=== PATIENT | male | born 1940 | race Caucasian/White ===

== ENCOUNTER → 2017-04-25 14:48 | Outpatient (CLI) | payer MEDICARE ==
[2015-10-24 08:53] VITALS: BMI 24.3
[~2017-04-25 14:48] MED LIST: ADVAIR 100/501 DISK INH; AMBIEN10 MG PO
== END | disposition home or self-care (01) ==
LOC: D.CT 14:48
DX: J98.11 Atelectasis (principal); J44.1 Chronic obstructive pulmonary disease with (acute) exacerbation

== ENCOUNTER 2017-04-28 09:49 | Inpatient (IN) | payer MEDICARE ==
[~2017-04-28] VITALS: Ht 172.7 cm; Wt 72.5 kg
--- NOTE | ~2017-04-28 | EC ---
PATIENT:TONG CORREA DATE OF SERVICE: 04/29/17 SEX: M MEDICAL RECORD: [id number] DATE OF : 42 LOCATION:[facility] AGE OF PATIENT: 76 ADMISSION DATE: 04/29/17 REFERRING PHYSICIAN: INTERPRETING PHYSICIAN: ANUP ROMERO MD ECHOCARDIOGRAM REPORT ECHO CHARGES 4 ECHO COMPLETE CLINICAL DIAGNOSIS: TACHYCARDIA/CP ECHOCARDIOGRAPHIC MEASUREMENTS (adult normal given) AC root (d.<3.7cm) 3.3 cm LV Septum d (<1.2 cm> 1.1 cm Valve Excursion 1.8 cm LV Septum (systole) 1.9 cm Left Atria (s.<4.0cm> 3.4 cm LVPW d(<1.2cm) 1.3 cm RV (d.<2.3cm) 2.4 cm LVPW (sytole) 2.2 cm LV diastole(<5.6CM) 5.0 cm MV E-F(>70mm/sec) cm LV systole 3.2 cm LVOT Diameter 1.6 cm MV exc.(>10mm) cm Est.ejection fraction (50-75%) % Pericardial Effusion N DOPPLER: LVIT cm/sec A 100 cm/sec E 74.0 cm/sec LA cm/sec RVSP 35.0 mmHg LVOT 132 cm/sec AOP1/2T m/s Asc. Ao 153 cm/sec RVOT 87.0 cm/sec RA cm/sec PA 122 cm/sec AV Gradient Peak 9.4 mmHg AV Mean 6.1 mmHg AV Area 1.4 cm MV Gradient Peak 6.0 mmHg MV Mean 2.3 mmHg MV Area cm COMMENTS: Manager Bank: Howie VASQUEZOE Antique Repairer: Sima Romero TAPE# PACS DATE OF SERVICE: 05/12/2017 PROCEDURE: Transthoracic echocardiogram. FINDINGS: 1. Left ventricle shows evidence of left ventricular hypertrophy and hyperdynamic state. There are no obvious wall motion abnormalities. The patient's ejection fraction is 60% to 65%. 2. The mitral valve has trace mitral regurgitation. 3. Right ventricle is normal size, normal function. ECHOCARDIOGRAM REPORT [id number] TONG CORREA 4. The aortic valve shows sclerosis without any evidence of stenosis or significant regurgitation. 5. The right ventricular systolic pressure is normal. There is mild tricuspid regurgitation. 6. Pulmonic valve is normal. 7. There is no pericardial effusion. 8. The inferior vena cava was not well visualized. CONCLUSIONS: The patient has evidence of mild hypertensive heart disease. No wall motion abnormalities. Preserved LV systolic function to hyperdynamic LV systolic function, otherwise normal echocardiogram. TRANSINT:[id number] Voice Confirmation ID: [id number] DOCUMENT ID: [id number] ANUP ROMERO MD at 0947 CC: [id number] DICTATION DATE: 05/12/17 183 SLATE ROOFER: 05/12/17 2314 ADM IN [facility] [address] [id number]
--- NOTE | ~2017-04-28 | OP ---
PATIENT NAME: TONG CORREA MEDICAL RECORD: [id number] :42 LOCATION:D.MS [id number] ADMISSION DATE:04/29/17 SURGEON: NARESH MC MD DATE OF OPERATION: 05/09/2017 SURGEON: Naresh Mc MD TRAPEZE PERFORMER SURGEON: Vinh Elaine MD PROCEDURE PERFORMED: 1. Laparoscopic hand-assisted sigmoid colectomy with end colostomy. 2. Abdominal washout with evacuation of hematoma. ANESTHESIA: General. COMPLICATIONS: None. SPECIMENS: Sigmoid colon. Case was grossly contaminated. ESTIMATED BLOOD LOSS: 400 cc. OPERATIVE COURSE: After consent was obtained, the patient was taken to the operating room and placed in the supine position on the operating table. Next, general anesthesia was given via endotracheal intubation. Thereafter, a timeout was performed to confirm the correct patient and procedure. The abdomen was then prepped and draped in typical sterile fashion. Local anesthetic was injected just above the umbilicus. A stab incision was made with 11-blade scalpel. Using a 5-mm bladeless optical trocar, the abdomen was entered under direct laparoscopic vision. After the trocar was placed, adequate pneumoperitoneum was achieved. There was significant intra-abdominal adhesions to the anterior abdominal wall. The greater omentum that was coagulated, blood noted throughout the abdomen and pelvis. Two additional 5-mm trocars were placed in the right lateral quadrant. Blunt dissection was performed until the abdominal wall was cleared, evacuation of hemoperitoneum was attempted with the laparoscopic suction. Due to the quantity of hemoperitoneum, blood was not able to be suctioned from the abdomen. In the left lower quadrant, there was a portion of colon that was unable to be dissected from the anterior abdominal wall. At this time, the lower midline abdominal incision was placed. Skin was incised with a 15 blade scalpel. Dissection continued to the external oblique fascia using electrocautery. The midline fascia was opened using electrocautery. The peritoneum was opened with electrocautery and the remaining incision was opened with direct vision. The Tree retractor was placed, approximately 800 cc of coagulated blood was removed from the abdomen, the abdomen was copiously irrigated and suctioned. A Gelport was placed. Again, the abdomen was irrigated and suctioned again. The descending colon was mobilized, the white line of Toldt was taken with the Harmonic scalpel. At this time, the Gelport was removed. The sigmoid colon was meticulously dissected off the anterior abdominal wall. There were 2 areas of perforation noted within the sigmoid colon from the patient per admitting presentation of perforated diverticulitis with pneumoperitoneum, the hemorrhoidal vessels and inferior mesenteric artery and vessels were identified. They were taken with the linear CHASE stapler. Dissection continued to the level of the rectum. The colorectal junction, the GI stapler was again used to transect the colon at the colorectal junction. The mesentery was taken with the Harmonic scalpel. When healthy descending colon was identified, an additional firing of the CHASE stapler was OPERATIVE REPORT [id number] TONG CORREA used to transect the sigmoid colon. The sigmoid colon was passed off the field and sent for permanent pathology. The abdomen and pelvis was again copiously irrigated and suctioned. The small bowel was extracorporealized. There are multiple areas of significant small bowel adhesions secondary to coagulated blood. Small bowel was cleaned as was possible, small bowel was returned to the abdomen. The abdomen was again suctioned and irrigated. Dr. Elaine was consulted for definitive identification of the left ureter. The left ureter was identified in its course anterior to the external iliac artery to the bladder, the ureter was not injured. At this time, the abdomen was again irrigated and suctioned. A skin incision was made for a left lower quadrant colostomy with Harmonic scalpel. Subcutaneous tissues was dissected using the Harmonic scalpel. The cruciate incision was made into the fascia. The muscles were gently split. The peritoneum was incised with electrocautery, it was bluntly opened. The descending colon was delivered through the incision and liver to the anterior abdominal wall. Two JOJO drains were placed, 1 along the left paracolic gutter and one into the pelvis delivered through the 5-mm trocar sites, the fascia was then closed using #1 looped PDS. Skin was closed with sukhdev. A Yamile colostomy was then fashioned in the left lower quadrant. At the end of the case, all needle and instrument counts were correct. No complications occurred. The patient was extubated and transferred to the PACU in stable condition. TRANSINT:[id number] Voice Confirmation ID: [id number] DOCUMENT ID: [id number] NARESH MC MD at 0629 CC: [id number] DICTATION DATE: 05/09/17 1601 SHRIMP PACKER: 05/09/17 1724 ADM IN [facility] [address] [id number]
[2017-04-28 10:37] LABS: HEMATOCRIT 46.2 % (42.0-54.0); HEMOGLOBIN 15.9 g/dL (13.5-17.5); MCH 31.9 pg (26.0-34.0); MCHC 34.4 g/dL (31.0-37.0); MCV 92.6 fL (80.0-100.0); MEAN PLATELET VOLUME 9.1 fL (7.4-10.4); PLATELET COUNT 648 10x3/uL (130-400); RBC 4.99 10x6/uL (4.20-6.10); RDW 14.9 % (11.5-14.5); WBC 20.3 10x3/uL (4.8-10.8)
[2017-04-28 10:53] LABS: BASOPHILS 1 % (0-2); LYMPHOCYTES 11 % (15-50); MONOCYTES 3 % (2-11); NEUTROPHILS 81 % (40-80); PLATELET ESTIMATE INCREASED
[2017-04-28 10:58] LABS: ALBUMIN 3.9 g/dL (3.4-5.0); ANION GAP 12.5 mmol/L (8-16); BILIRUBIN - TOTAL 0.7 mg/dL (0.2-1.3); CALCIUM 9.1 mg/dL (8.5-10.1); CARBON DIOXIDE 29.5 mmol/L (21.0-32.0); CREATININE - SERUM 1.1 mg/dL (0.6-1.3); PROTEIN - SERUM 7.4 g/dL (6.4-8.2)
[2017-04-28 13:01] LABS: APPEARANCE CLEAR (CLEAR); BILIRUBIN NEGATIVE (NEGATIVE); COLOR YELLOW (YELLOW); GLUCOSE NEGATIVE (NEGATIVE); KETONE NEGATIVE (NEGATIVE); NITRITE NEGATIVE (NEGATIVE); PROTEIN NEGATIVE (NEGATIVE); SPECIFIC GRAVITY 1.015 (1.005-1.020); UROBILINOGEN NORMAL (NORMAL)
[2017-04-29 05:25] LABS: BASOPHILS 0.2 % (0-2); EOSINOPHILS 1.4 % (0-7); HEMOGLOBIN 13.3 g/dL (13.5-17.5); IMMATURE GRANULOCYTES 0.3 % (0-5); MCH 31.1 pg (26.0-34.0); MCHC 33.3 g/dL (31.0-37.0); MCV 93.5 fL (80.0-100.0); MEAN PLATELET VOLUME 9.2 fL (7.4-10.4); MONOCYTES 5.2 % (2-11); NEUTROPHILS 86.9 % (40-80); RBC 4.28 10x6/uL (4.20-6.10); WBC 18.1 10x3/uL (4.8-10.8)
[2017-04-29 05:32] LABS: PLATELET COUNT 496 10x3/uL (130-400)
[2017-04-29 06:05] LABS: ANION GAP 8.6 mmol/L (8-16); BILIRUBIN - TOTAL 0.7 mg/dL (0.2-1.3); CALCIUM 8.4 mg/dL (8.5-10.1); CARBON DIOXIDE 29.3 mmol/L (21.0-32.0); CREATININE - SERUM 1.1 mg/dL (0.6-1.3); POTASSIUM - SERUM 3.9 mmol/L (3.5-5.1); PROTEIN - SERUM 5.7 g/dL (6.4-8.2)
[2017-04-29 06:06] LABS: ALBUMIN 2.7 g/dL (3.4-5.0)
[2017-04-29 17:35] VITALS: BP 133/69; BMI 24.3
[2017-04-29 22:39] VITALS: BP 123/71
[2017-04-30 02:54] VITALS: BP 124/74
[2017-04-30 05:31] VITALS: BP 164/84
[2017-04-30 08:31] LABS: BASOPHILS 0.1 % (0-2); EOSINOPHILS 2.5 % (0-7); HEMATOCRIT 40.4 % (42.0-54.0); HEMOGLOBIN 13.7 g/dL (13.5-17.5); IMMATURE GRANULOCYTES 0.4 % (0-5); LYMPHOCYTES 5.5 % (15-50); MCH 31.4 pg (26.0-34.0); MCHC 33.9 g/dL (31.0-37.0); MCV 92.4 fL (80.0-100.0); MEAN PLATELET VOLUME 9.5 fL (7.4-10.4); MONOCYTES 4.8 % (2-11); NEUTROPHILS 86.7 % (40-80); PLATELET COUNT 494 10x3/uL (130-400); RBC 4.37 10x6/uL (4.20-6.10); RDW 14.6 % (11.5-14.5); WBC 15.9 10x3/uL (4.8-10.8)
[2017-04-30 09:40] VITALS: BP 123/65
[2017-04-30 11:48] VITALS: BP 127/73
[2017-04-30 12:52] VITALS: BMI 24.3
[2017-04-30 16:28] VITALS: BP 130/70
[2017-04-30 23:32] VITALS: BP 142/73
[2017-05-01 04:00] VITALS: BP 136/74
[2017-05-01 04:23] LABS: BASOPHILS 0.2 % (0-2); EOSINOPHILS 7.3 % (0-7); HEMATOCRIT 40.6 % (42.0-54.0); HEMOGLOBIN 13.8 g/dL (13.5-17.5); IMMATURE GRANULOCYTES 0.4 % (0-5); LYMPHOCYTES 7.9 % (15-50); MCH 31.4 pg (26.0-34.0); MCV 92.3 fL (80.0-100.0); MEAN PLATELET VOLUME 9.1 fL (7.4-10.4); MONOCYTES 6.5 % (2-11); NEUTROPHILS 77.7 % (40-80); PLATELET COUNT 492 10x3/uL (130-400); RDW 14.4 % (11.5-14.5)
[2017-05-01 04:26] LABS: WBC 11.2 10x3/uL (4.8-10.8)
[2017-05-01 04:32] LABS: CALC OSMOLALITY 280 mosm/kg (275-300); CALCIUM 8.3 mg/dL (8.5-10.1); CHLORIDE - SERUM 105 mmol/L (98-107); GLUCOSE 99 mg/dL (74-106); POTASSIUM - SERUM 3.5 mmol/L (3.5-5.1); SODIUM 141 mmol/L (136-145); UREA NITROGEN 12 mg/dL (7-18); eGFR NON AFRICAN AMERICAN 77 mL/min (90-120)
[2017-05-01 09:02] VITALS: BP 144/76
[2017-05-01 12:24] VITALS: BP 138/75
[2017-05-01 16:21] VITALS: BP 145/78
[2017-05-01 21:39] VITALS: BP 142/97
[2017-05-02] VITALS (7 sets, daily range): BP systolic 96–165; BP diastolic 58–79
[2017-05-02 05:46] LABS: BASOPHILS 0.2 % (0-2); EOSINOPHILS 6.5 % (0-7); HEMATOCRIT 35.7 % (42.0-54.0); HEMOGLOBIN 12.1 g/dL (13.5-17.5); IMMATURE GRANULOCYTES 0.4 % (0-5); LYMPHOCYTES 4.7 % (15-50); MCHC 33.9 g/dL (31.0-37.0); MCV 91.5 fL (80.0-100.0); MEAN PLATELET VOLUME 9.2 fL (7.4-10.4); MONOCYTES 8.9 % (2-11); NEUTROPHILS 79.3 % (40-80); PLATELET COUNT 469 10x3/uL (130-400); RDW 14.3 % (11.5-14.5); WBC 10.5 10x3/uL (4.8-10.8)
[2017-05-02 06:06] LABS: CALC OSMOLALITY 277 mosm/kg (275-300); CALCIUM 7.9 mg/dL (8.5-10.1); CARBON DIOXIDE 25.2 mmol/L (21.0-32.0); CHLORIDE - SERUM 105 mmol/L (98-107); CREATININE - SERUM 0.9 mg/dL (0.6-1.3); GLUCOSE 98 mg/dL (74-106); POTASSIUM - SERUM 3.5 mmol/L (3.5-5.1); SODIUM 139 mmol/L (136-145); UREA NITROGEN 12 mg/dL (7-18); eGFR NON AFRICAN AMERICAN 87 mL/min (90-120)
[2017-05-02 11:13] LABS: INR 1.17 (0.85-1.17); PROTIME 14.4 SECONDS (11.6-15.0)
[2017-05-02 11:14] LABS: APTT 46.9 SECONDS (22.8-39.4)
[2017-05-03 02:11] VITALS: BP 104/60
[2017-05-03 04:56] VITALS: BP 111/64
[2017-05-03 07:15] VITALS: BP 98/56
[2017-05-03 07:28] LABS: BASOPHILS 0.2 % (0-2); EOSINOPHILS 0.1 % (0-7); HEMATOCRIT 28.6 % (42.0-54.0); HEMOGLOBIN 9.7 g/dL (13.5-17.5); IMMATURE GRANULOCYTES 0.4 % (0-5); LYMPHOCYTES 3.4 % (15-50); MCHC 33.9 g/dL (31.0-37.0); MCV 91.4 fL (80.0-100.0); MEAN PLATELET VOLUME 9.1 fL (7.4-10.4); MONOCYTES 9.3 % (2-11); NEUTROPHILS 86.6 % (40-80); PLATELET COUNT 488 10x3/uL (130-400); RBC 3.13 10x6/uL (4.20-6.10); RDW 14.3 % (11.5-14.5)
[2017-05-03 07:32] LABS: WBC 14.4 10x3/uL (4.8-10.8)
[2017-05-03 07:39] LABS: ANION GAP 11.2 mmol/L (8-16); CALCIUM 7.8 mg/dL (8.5-10.1); CARBON DIOXIDE 25.9 mmol/L (21.0-32.0); CREATININE - SERUM 1.1 mg/dL (0.6-1.3); MAGNESIUM - SERUM 1.7 mg/dL (1.8-2.4)
[2017-05-03 07:45] LABS: POTASSIUM - SERUM 4.1 mmol/L (3.5-5.1)
[2017-05-03 11:03] VITALS: BP 109/56
[2017-05-03 15:11] VITALS: BP 107/56
[2017-05-03 22:20] VITALS: BP 107/63
[2017-05-04 01:15] VITALS: BP 96/60
[2017-05-04 04:55] LABS: BASOPHILS 0.3 % (0-2); HEMATOCRIT 25.4 % (42.0-54.0); HEMOGLOBIN 8.5 g/dL (13.5-17.5); IMMATURE GRANULOCYTES 0.6 % (0-5); LYMPHOCYTES 7.7 % (15-50); MCH 30.5 pg (26.0-34.0); MCHC 33.5 g/dL (31.0-37.0); MONOCYTES 8.1 % (2-11); NEUTROPHILS 81.3 % (40-80); PLATELET COUNT 541 10x3/uL (130-400); RBC 2.79 10x6/uL (4.20-6.10); RDW 14.4 % (11.5-14.5); WBC 14.7 10x3/uL (4.8-10.8)
[2017-05-04 05:05] VITALS: BP 122/79
[2017-05-04 05:06] LABS: CALC OSMOLALITY 282 mosm/kg (275-300); CALCIUM 8.1 mg/dL (8.5-10.1); CARBON DIOXIDE 29.1 mmol/L (21.0-32.0); CHLORIDE - SERUM 103 mmol/L (98-107); GLUCOSE 107 mg/dL (74-106); POTASSIUM - SERUM 3.9 mmol/L (3.5-5.1); SODIUM 139 mmol/L (136-145); eGFR NON AFRICAN AMERICAN 77 mL/min (90-120)
[2017-05-04 05:08] LABS: UREA NITROGEN 27 mg/dL (7-18)
[2017-05-04 07:57] VITALS: BP 134/63
[2017-05-04 12:34] VITALS: BP 113/65
[2017-05-04 15:45] VITALS: BP 95/57
[2017-05-04 22:26] VITALS: BP 98/60
[2017-05-05 01:39] VITALS: BP 120/67
[2017-05-05 04:18] LABS: BASOPHILS 0.2 % (0-2); HEMATOCRIT 24.3 % (42.0-54.0); IMMATURE GRANULOCYTES 0.5 % (0-5); MCH 30.5 pg (26.0-34.0); MCHC 32.9 g/dL (31.0-37.0); MCV 92.7 fL (80.0-100.0); MEAN PLATELET VOLUME 8.7 fL (7.4-10.4); MONOCYTES 8.7 % (2-11); NEUTROPHILS 75.6 % (40-80); PLATELET COUNT 558 10x3/uL (130-400); RBC 2.62 10x6/uL (4.20-6.10); RDW 14.4 % (11.5-14.5); WBC 13.2 10x3/uL (4.8-10.8)
[2017-05-05 04:35] LABS: CALC OSMOLALITY 280 mosm/kg (275-300); CALCIUM 7.8 mg/dL (8.5-10.1); CARBON DIOXIDE 30.9 mmol/L (21.0-32.0); CHLORIDE - SERUM 103 mmol/L (98-107); CREATININE - SERUM 0.9 mg/dL (0.6-1.3); GLUCOSE 102 mg/dL (74-106); POTASSIUM - SERUM 3.9 mmol/L (3.5-5.1); SODIUM 140 mmol/L (136-145); eGFR NON AFRICAN AMERICAN 87 mL/min (90-120)
[2017-05-05 04:36] LABS: UREA NITROGEN 19 mg/dL (7-18)
[2017-05-05 05:15] VITALS: BP 105/67
[2017-05-05 08:45] VITALS: BP 133/65
[2017-05-05 12:31] VITALS: BP 127/73
[2017-05-05 16:56] VITALS: BP 105/66
[2017-05-05 22:21] VITALS: BP 125/67
[2017-05-06 00:56] VITALS: BP 127/74
[2017-05-06 05:20] VITALS: BP 109/69
[2017-05-06 09:02] VITALS: BP 141/73
[2017-05-06 09:46] LABS: BASOPHILS 0.3 % (0-2); EOSINOPHILS 5.7 % (0-7); HEMATOCRIT 25.7 % (42.0-54.0); HEMOGLOBIN 8.3 g/dL (13.5-17.5); IMMATURE GRANULOCYTES 1.2 % (0-5); MCHC 32.3 g/dL (31.0-37.0); MCV 92.8 fL (80.0-100.0); MEAN PLATELET VOLUME 9.2 fL (7.4-10.4); MONOCYTES 9.8 % (2-11); PLATELET COUNT 711 10x3/uL (130-400); RBC 2.77 10x6/uL (4.20-6.10); RDW 14.2 % (11.5-14.5); WBC 12.9 10x3/uL (4.8-10.8)
[2017-05-06 09:59] LABS: CALC OSMOLALITY 279 mosm/kg (275-300); CALCIUM 7.8 mg/dL (8.5-10.1); CARBON DIOXIDE 33.2 mmol/L (21.0-32.0); CHLORIDE - SERUM 102 mmol/L (98-107); CREATININE - SERUM 0.8 mg/dL (0.6-1.3); GLUCOSE 116 mg/dL (74-106); POTASSIUM - SERUM 3.4 mmol/L (3.5-5.1); SODIUM 139 mmol/L (136-145); UREA NITROGEN 15 mg/dL (7-18); eGFR NON AFRICAN AMERICAN > 90 mL/min (90-120)
[2017-05-06 12:45] VITALS: BP 121/64
[2017-05-06 17:19] VITALS: BP 158/71
[2017-05-06 22:12] VITALS: BP 120/69
[2017-05-07 01:36] VITALS: BP 124/68
[2017-05-07 04:46] VITALS: BP 132/75
[2017-05-07 06:22] LABS: BASOPHILS 0.2 % (0-2); EOSINOPHILS 7.3 % (0-7); HEMATOCRIT 23.9 % (42.0-54.0); HEMOGLOBIN 7.8 g/dL (13.5-17.5); IMMATURE GRANULOCYTES 2.1 % (0-5); LYMPHOCYTES 9.5 % (15-50); MCH 30.1 pg (26.0-34.0); MCHC 32.6 g/dL (31.0-37.0); MCV 92.3 fL (80.0-100.0); MEAN PLATELET VOLUME 9.1 fL (7.4-10.4); MONOCYTES 8.3 % (2-11); NEUTROPHILS 72.6 % (40-80); PLATELET COUNT 715 10x3/uL (130-400); RBC 2.59 10x6/uL (4.20-6.10); RDW 14.3 % (11.5-14.5)
[2017-05-07 06:43] LABS: CALC OSMOLALITY 277 mosm/kg (275-300); CALCIUM 7.8 mg/dL (8.5-10.1); CARBON DIOXIDE 31.1 mmol/L (21.0-32.0); CHLORIDE - SERUM 101 mmol/L (98-107); CREATININE - SERUM 0.7 mg/dL (0.6-1.3); GLUCOSE 110 mg/dL (74-106); POTASSIUM - SERUM 3.6 mmol/L (3.5-5.1); SODIUM 138 mmol/L (136-145); UREA NITROGEN 16 mg/dL (7-18); eGFR NON AFRICAN AMERICAN > 90 mL/min (90-120)
[2017-05-07 08:00] VITALS: BP 145/70
[2017-05-07 17:02] VITALS: BP 142/65
[2017-05-07 23:49] VITALS: BP 115/62
[2017-05-08 05:25] VITALS: BP 154/71
[2017-05-08 07:52] VITALS: BP 115/63
[2017-05-08 09:16] LABS: HEMATOCRIT 24.7 % (42.0-54.0); MCHC 32.4 g/dL (31.0-37.0); MCV 92.5 fL (80.0-100.0); MEAN PLATELET VOLUME 8.9 fL (7.4-10.4); PLATELET COUNT 796 10x3/uL (130-400); RBC 2.67 10x6/uL (4.20-6.10); RDW 14.3 % (11.5-14.5); WBC 22.9 10x3/uL (4.8-10.8)
[2017-05-08 09:24] LABS: CALC OSMOLALITY 273 mosm/kg (275-300); CALCIUM 7.9 mg/dL (8.5-10.1); CHLORIDE - SERUM 99 mmol/L (98-107); CREATININE - SERUM 0.8 mg/dL (0.6-1.3); GENTAMICIN - TROUGH 0.9 ug/mL (0.5-2.0); GLUCOSE 143 mg/dL (74-106); SODIUM 135 mmol/L (136-145); UREA NITROGEN 18 mg/dL (7-18); eGFR NON AFRICAN AMERICAN > 90 mL/min (90-120)
[2017-05-08 10:09] LABS: EOSINOPHILS 1 % (0-7); LYMPHOCYTES 4 % (15-50); MONOCYTES 8 % (2-11); NEUTROPHILS 80 % (40-80); PLATELET ESTIMATE NORMAL
[2017-05-08 12:11] VITALS: BP 127/65
[2017-05-08 23:10] VITALS: BP 1047/64
[2017-05-09 02:43] VITALS: BP 169/78
[2017-05-09 05:08] LABS: CALC OSMOLALITY 273 mosm/kg (275-300); CALCIUM 7.8 mg/dL (8.5-10.1); CARBON DIOXIDE 30.7 mmol/L (21.0-32.0); CHLORIDE - SERUM 99 mmol/L (98-107); CREATININE - SERUM 0.8 mg/dL (0.6-1.3); GLUCOSE 126 mg/dL (74-106); POTASSIUM - SERUM 4.2 mmol/L (3.5-5.1); SODIUM 134 mmol/L (136-145); eGFR NON AFRICAN AMERICAN > 90 mL/min (90-120)
[2017-05-09 05:09] LABS: BASOPHILS 0.1 % (0-2); EOSINOPHILS 0.7 % (0-7); HEMATOCRIT 20.8 % (42.0-54.0); HEMOGLOBIN 6.9 g/dL (13.5-17.5); IMMATURE GRANULOCYTES 1.4 % (0-5); MCH 30.5 pg (26.0-34.0); MCHC 33.2 g/dL (31.0-37.0); MEAN PLATELET VOLUME 9.1 fL (7.4-10.4); MONOCYTES 4.2 % (2-11); NEUTROPHILS 90.6 % (40-80); PLATELET COUNT 726 10x3/uL (130-400); RBC 2.26 10x6/uL (4.20-6.10); RDW 14.7 % (11.5-14.5); WBC 21.6 10x3/uL (4.8-10.8)
[2017-05-09 05:13] VITALS: BP 136/72
[2017-05-09 05:15] LABS: UREA NITROGEN 24 mg/dL (7-18)
[2017-05-09 07:59] VITALS: BP 111/59
[2017-05-09 17:40] VITALS: BP 117/64
[2017-05-09 22:06] VITALS: BP 111/57
[2017-05-10 04:36] VITALS: BP 105/61
[2017-05-10 05:55] LABS: BASOPHILS 0.1 % (0-2); EOSINOPHILS 0.3 % (0-7); IMMATURE GRANULOCYTES 1.3 % (0-5); LYMPHOCYTES 3.6 % (15-50); MCH 30.4 pg (26.0-34.0); MCHC 34.6 g/dL (31.0-37.0); MEAN PLATELET VOLUME 9.4 fL (7.4-10.4); MONOCYTES 6.1 % (2-11); NEUTROPHILS 88.6 % (40-80); PLATELET COUNT 637 10x3/uL (130-400); RDW 16.4 % (11.5-14.5)
[2017-05-10 06:01] LABS: HEMATOCRIT 35.5 % (42.0-54.0); HEMOGLOBIN 12.3 g/dL (13.5-17.5); MCV 87.7 fL (80.0-100.0); RBC 4.05 10x6/uL (4.20-6.10); WBC 15.1 10x3/uL (4.8-10.8)
[2017-05-10 06:12] LABS: ANION GAP 11.9 mmol/L (8-16); CALCIUM 7.4 mg/dL (8.5-10.1); CARBON DIOXIDE 27.4 mmol/L (21.0-32.0); CREATININE - SERUM 1.1 mg/dL (0.6-1.3); POTASSIUM - SERUM 5.3 mmol/L (3.5-5.1)
[2017-05-10 07:03] VITALS: BP 117/68
[2017-05-10 11:10] VITALS: BP 115/77
[2017-05-10 15:07] VITALS: BP 137/79
[2017-05-10 20:30] VITALS: BP 134/67
[2017-05-11] VITALS (10 sets, daily range): BP systolic 112–181; BP diastolic 62–108
[2017-05-11 05:37] LABS: BASOPHILS 0.1 % (0-2); EOSINOPHILS 0 % (0-7); HEMATOCRIT 34.8 % (42.0-54.0); HEMOGLOBIN 11.8 g/dL (13.5-17.5); IMMATURE GRANULOCYTES 0.9 % (0-5); LYMPHOCYTES 2.4 % (15-50); MCH 29.8 pg (26.0-34.0); MCHC 33.9 g/dL (31.0-37.0); MCV 87.9 fL (80.0-100.0); MEAN PLATELET VOLUME 9.3 fL (7.4-10.4); MONOCYTES 5.4 % (2-11); NEUTROPHILS 91.2 % (40-80); PLATELET COUNT 702 10x3/uL (130-400); RBC 3.96 10x6/uL (4.20-6.10); RDW 16.7 % (11.5-14.5); WBC 24.3 10x3/uL (4.8-10.8)
[2017-05-11 05:53] LABS: CALC OSMOLALITY 281 mosm/kg (275-300); CALCIUM 8.1 mg/dL (8.5-10.1); CARBON DIOXIDE 29.4 mmol/L (21.0-32.0); CHLORIDE - SERUM 97 mmol/L (98-107); GLUCOSE 124 mg/dL (74-106); MAGNESIUM - SERUM 2.2 mg/dL (1.8-2.4); POTASSIUM - SERUM 4.6 mmol/L (3.5-5.1); SODIUM 135 mmol/L (136-145); eGFR NON AFRICAN AMERICAN 77 mL/min (90-120)
[2017-05-11 05:54] LABS: UREA NITROGEN 43 mg/dL (7-18)
[2017-05-12] VITALS (24 sets, daily range): BP systolic 94–164; BP diastolic 62–98; Ht 172.7 cm; Wt 72.5 kg
[2017-05-12 00:27] LABS: ALBUMIN 1.7 g/dL (3.4-5.0); ALKALINE PHOSPHATASE 92 U/L (46-116); ALT (SGPT) 50 U/L (10-68); CALC OSMOLALITY 280 mosm/kg (275-300); CALCIUM 8.5 mg/dL (8.5-10.1); CARBON DIOXIDE 33.7 mmol/L (21.0-32.0); CHLORIDE - SERUM 93 mmol/L (98-107); CREATININE - SERUM 1.1 mg/dL (0.6-1.3); GLUCOSE 127 mg/dL (74-106); PROTEIN - SERUM 6.1 g/dL (6.4-8.2); SODIUM 133 mmol/L (136-145); UREA NITROGEN 49 mg/dL (7-18); eGFR NON AFRICAN AMERICAN 69 mL/min (90-120)
[2017-05-12 00:29] LABS: POTASSIUM - SERUM 3.9 mmol/L (3.5-5.1)
[2017-05-12 00:39] LABS: CKMB 1.1 U/L (0.0-3.6); CREATINE KINASE 115 UL (21-232); TROPONIN-I < 0.017 ng/mL (0.000-0.060)
[2017-05-12 03:58] LABS: ANION GAP 9.7 mmol/L (8-16); CALCIUM 8.6 mg/dL (8.5-10.1); CARBON DIOXIDE 34.7 mmol/L (21.0-32.0); CREATININE - SERUM 1.1 mg/dL (0.6-1.3); MAGNESIUM - SERUM 2.1 mg/dL (1.8-2.4); POTASSIUM - SERUM 3.4 mmol/L (3.5-5.1)
[2017-05-12 03:59] LABS: BASOPHILS 0.3 % (0-2); EOSINOPHILS 0 % (0-7); HEMATOCRIT 32.9 % (42.0-54.0); HEMOGLOBIN 11.3 g/dL (13.5-17.5); LYMPHOCYTES 2.6 % (15-50); MCH 30.3 pg (26.0-34.0); MCHC 34.3 g/dL (31.0-37.0); MCV 88.2 fL (80.0-100.0); MEAN PLATELET VOLUME 9.4 fL (7.4-10.4); MONOCYTES 4.2 % (2-11); NEUTROPHILS 91.9 % (40-80); PLATELET COUNT 890 10x3/uL (130-400); RBC 3.73 10x6/uL (4.20-6.10); RDW 16.5 % (11.5-14.5); WBC 28.3 10x3/uL (4.8-10.8)
[2017-05-12 08:46] LABS: BILIRUBIN - DIRECT 4.83 mg/dL (0.00-0.30); BILIRUBIN - INDIRECT 1.32 mg/dL (0.00-1.00); BILIRUBIN - TOTAL 6.15 mg/dL (0.2-1.3)
[2017-05-12 12:43] LABS: CKMB 1.6 U/L (0.0-3.6); CREATINE KINASE 124 UL (21-232); TROPONIN-I < 0.017 ng/mL (0.000-0.060)
[2017-05-12 12:55] LABS: APPEARANCE HAZY (CLEAR); BILIRUBIN 2+ (NEGATIVE); COLOR AMBER (YELLOW); GLUCOSE NEGATIVE (NEGATIVE); KETONE NEGATIVE (NEGATIVE); NITRITE NEGATIVE (NEGATIVE); PROTEIN 1+ mg/dL (NEGATIVE); SPECIFIC GRAVITY 1.015 (1.005-1.020); UROBILINOGEN NORMAL (NORMAL)
[2017-05-12 13:02] LABS: AMORPHOUS SEDIMENT >1+ /lpf (NONE SEEN); BACTERIA MODERATE /hpf (NONE SEEN); EPITHELIAL CELLS 0-5 /hpf (0-5); HYALINE CAST 0-5 /lpf (NONE SEEN); MUCUS >1+ /lpf (NONE SEEN); RED CELLS - URINE 0-5 /hpf (0-5); WHITE CELLS - URINE 0-5 /hpf (0-5)
[2017-05-12 17:36] LABS: CKMB 2.8 U/L (0.0-3.6); CREATINE KINASE 142 UL (21-232)
[2017-05-12 17:50] LABS: TROPONIN-I 0.016 ng/mL (0.000-0.060)
[2017-05-13] VITALS (25 sets, daily range): BP systolic 112–150; BP diastolic 62–98
[2017-05-13 00:16] LABS: CKMB 2.5 U/L (0.0-3.6); CREATINE KINASE 128 UL (21-232); TROPONIN-I < 0.017 ng/mL (0.000-0.060)
[2017-05-13 04:59] LABS: BASOPHILS 0.3 % (0-2); EOSINOPHILS 2.3 % (0-7); HEMATOCRIT 28.1 % (42.0-54.0); HEMOGLOBIN 9.3 g/dL (13.5-17.5); IMMATURE GRANULOCYTES 2.2 % (0-5); LYMPHOCYTES 3.8 % (15-50); MCH 29.4 pg (26.0-34.0); MCHC 33.1 g/dL (31.0-37.0); MCV 88.9 fL (80.0-100.0); MEAN PLATELET VOLUME 9.3 fL (7.4-10.4); MONOCYTES 5.5 % (2-11); NEUTROPHILS 85.9 % (40-80); PLATELET COUNT 771 10x3/uL (130-400); RBC 3.16 10x6/uL (4.20-6.10); RDW 16.7 % (11.5-14.5)
[2017-05-13 05:06] LABS: WBC 17.8 10x3/uL (4.8-10.8)
[2017-05-13 05:27] LABS: ALBUMIN 1.4 g/dL (3.4-5.0); ALKALINE PHOSPHATASE 76 U/L (46-116); BILIRUBIN - DIRECT 2.81 mg/dL (0.00-0.30); BILIRUBIN - INDIRECT 1.14 mg/dL (0.00-1.00); BILIRUBIN - TOTAL 3.95 mg/dL (0.2-1.3); CALC OSMOLALITY 284 mosm/kg (275-300); CALCIUM 8.1 mg/dL (8.5-10.1); CARBON DIOXIDE 29.5 mmol/L (21.0-32.0); CHLORIDE - SERUM 102 mmol/L (98-107); GLUCOSE 91 mg/dL (74-106); MAGNESIUM - SERUM 2.1 mg/dL (1.8-2.4); POTASSIUM - SERUM 3.5 mmol/L (3.5-5.1); SODIUM 137 mmol/L (136-145); UREA NITROGEN 44 mg/dL (7-18); eGFR NON AFRICAN AMERICAN 77 mL/min (90-120)
[2017-05-13 05:31] LABS: ALT (SGPT) 64 U/L (10-68)
[2017-05-14] VITALS (22 sets, daily range): BP systolic 97–147; BP diastolic 60–92
[2017-05-14 05:04] LABS: BASOPHILS 0.8 % (0-2); EOSINOPHILS 2.5 % (0-7); HEMATOCRIT 31.3 % (42.0-54.0); HEMOGLOBIN 10.2 g/dL (13.5-17.5); IMMATURE GRANULOCYTES 7.5 % (0-5); LYMPHOCYTES 4.6 % (15-50); MCH 29.1 pg (26.0-34.0); MCHC 32.6 g/dL (31.0-37.0); MCV 89.2 fL (80.0-100.0); MEAN PLATELET VOLUME 9.5 fL (7.4-10.4); MONOCYTES 7.7 % (2-11); NEUTROPHILS 76.9 % (40-80); PLATELET COUNT 736 10x3/uL (130-400); RBC 3.51 10x6/uL (4.20-6.10); RDW 17.1 % (11.5-14.5); WBC 15.8 10x3/uL (4.8-10.8)
[2017-05-14 05:09] LABS: ALBUMIN 1.4 g/dL (3.4-5.0); ALKALINE PHOSPHATASE 108 U/L (46-116); ALT (SGPT) 138 U/L (10-68); BILIRUBIN - DIRECT 1.45 mg/dL (0.00-0.30); BILIRUBIN - TOTAL 2.45 mg/dL (0.2-1.3); CALC OSMOLALITY 279 mosm/kg (275-300); CALCIUM 7.9 mg/dL (8.5-10.1); CARBON DIOXIDE 29.3 mmol/L (21.0-32.0); CHLORIDE - SERUM 102 mmol/L (98-107); CREATININE - SERUM 0.9 mg/dL (0.6-1.3); GLUCOSE 103 mg/dL (74-106); MAGNESIUM - SERUM 2.3 mg/dL (1.8-2.4); POTASSIUM - SERUM 3.4 mmol/L (3.5-5.1); PROTEIN - SERUM 4.8 g/dL (6.4-8.2); SODIUM 137 mmol/L (136-145); UREA NITROGEN 28 mg/dL (7-18); eGFR NON AFRICAN AMERICAN 87 mL/min (90-120)
[2017-05-15 04:00] VITALS: BP 121/71
[2017-05-15 04:46] LABS: BASOPHILS 1.4 % (0-2); EOSINOPHILS 2.4 % (0-7); HEMATOCRIT 28.5 % (42.0-54.0); IMMATURE GRANULOCYTES 11.1 % (0-5); LYMPHOCYTES 4.8 % (15-50); MCH 29.1 pg (26.0-34.0); MCHC 31.6 g/dL (31.0-37.0); MEAN PLATELET VOLUME 9.9 fL (7.4-10.4); MONOCYTES 7.4 % (2-11); NEUTROPHILS 72.9 % (40-80); PLATELET COUNT 798 10x3/uL (130-400); RBC 3.09 10x6/uL (4.20-6.10); RDW 17.7 % (11.5-14.5); WBC 17.9 10x3/uL (4.8-10.8)
[2017-05-15 05:07] LABS: MCV 92.2 fL (80.0-100.0)
[2017-05-15 05:08] LABS: CALC OSMOLALITY 267 mosm/kg (275-300); CALCIUM 7.5 mg/dL (8.5-10.1); CARBON DIOXIDE 28.4 mmol/L (21.0-32.0); CHLORIDE - SERUM 97 mmol/L (98-107); CREATININE - SERUM 0.9 mg/dL (0.6-1.3); GLUCOSE 147 mg/dL (74-106); MAGNESIUM - SERUM 2.5 mg/dL (1.8-2.4); SODIUM 130 mmol/L (136-145); UREA NITROGEN 24 mg/dL (7-18); eGFR NON AFRICAN AMERICAN 87 mL/min (90-120)
[2017-05-15 05:13] LABS: POTASSIUM - SERUM 4.8 mmol/L (3.5-5.1)
[2017-05-15 08:12] VITALS: BP 122/67
[2017-05-15 09:06] LABS: BILIRUBIN - DIRECT 0.79 mg/dL (0.00-0.30); BILIRUBIN - TOTAL 1.55 mg/dL (0.2-1.3)
[2017-05-15 12:24] VITALS: BP 107/59
[2017-05-15 15:57] VITALS: BP 117/67
[2017-05-15 20:00] VITALS: BP 111/64
[2017-05-15 21:39] VITALS: BP 130/71
[2017-05-16] VITALS: BP 114/65
[2017-05-16 04:00] VITALS: BP 93/45
[2017-05-16 04:51] LABS: BASOPHILS 1.3 % (0-2); EOSINOPHILS 1.7 % (0-7); HEMATOCRIT 28.3 % (42.0-54.0); HEMOGLOBIN 9.1 g/dL (13.5-17.5); IMMATURE GRANULOCYTES 9.7 % (0-5); LYMPHOCYTES 5.2 % (15-50); MCH 28.9 pg (26.0-34.0); MCHC 32.2 g/dL (31.0-37.0); MEAN PLATELET VOLUME 9.6 fL (7.4-10.4); MONOCYTES 9.2 % (2-11); NEUTROPHILS 72.9 % (40-80); PLATELET COUNT 792 10x3/uL (130-400); RBC 3.15 10x6/uL (4.20-6.10); RDW 17.6 % (11.5-14.5); WBC 18.7 10x3/uL (4.8-10.8)
[2017-05-16 04:53] LABS: ALBUMIN 1.5 g/dL (3.4-5.0); ALKALINE PHOSPHATASE 94 U/L (46-116); CALCIUM 7.2 mg/dL (8.5-10.1); CARBON DIOXIDE 29.9 mmol/L (21.0-32.0); CHLORIDE - SERUM 100 mmol/L (98-107); MAGNESIUM - SERUM 2.3 mg/dL (1.8-2.4); SODIUM 134 mmol/L (136-145); UREA NITROGEN 24 mg/dL (7-18); eGFR NON AFRICAN AMERICAN 77 mL/min (90-120)
[2017-05-16 04:57] LABS: MCV 89.8 fL (80.0-100.0)
[2017-05-16 05:00] LABS: ALT (SGPT) 82 U/L (10-68); CALC OSMOLALITY 271 mosm/kg (275-300); GLUCOSE 94 mg/dL (74-106); POTASSIUM - SERUM 3.7 mmol/L (3.5-5.1)
[2017-05-16 09:33] VITALS: BP 114/68
[2017-05-16 13:28] VITALS: BP 106/67
[2017-05-16 18:40] VITALS: BP 121/68
[2017-05-16 20:00] VITALS: BP 110/63
[2017-05-17] VITALS: BP 111/65
[2017-05-17 04:00] VITALS: BP 112/62
[2017-05-17 06:30] LABS: BASOPHILS 0.5 % (0-2); EOSINOPHILS 2.6 % (0-7); HEMATOCRIT 27.4 % (42.0-54.0); HEMOGLOBIN 8.8 g/dL (13.5-17.5); LYMPHOCYTES 4.5 % (15-50); MCH 28.9 pg (26.0-34.0); MCHC 32.1 g/dL (31.0-37.0); MCV 90.1 fL (80.0-100.0); MEAN PLATELET VOLUME 9.6 fL (7.4-10.4); NEUTROPHILS 77.4 % (40-80); PLATELET COUNT 739 10x3/uL (130-400); RBC 3.04 10x6/uL (4.20-6.10); RDW 17.4 % (11.5-14.5); WBC 18.8 10x3/uL (4.8-10.8)
[2017-05-17 06:45] LABS: CALC OSMOLALITY 265 mosm/kg (275-300); CALCIUM 7.1 mg/dL (8.5-10.1); CARBON DIOXIDE 28.2 mmol/L (21.0-32.0); CHLORIDE - SERUM 99 mmol/L (98-107); GLUCOSE 80 mg/dL (74-106); MAGNESIUM - SERUM 2.3 mg/dL (1.8-2.4); POTASSIUM - SERUM 3.6 mmol/L (3.5-5.1); SODIUM 133 mmol/L (136-145); eGFR NON AFRICAN AMERICAN 77 mL/min (90-120)
[2017-05-17 06:46] LABS: UREA NITROGEN 16 mg/dL (7-18)
[2017-05-17 07:41] VITALS: BP 130/65
[2017-05-17 12:27] VITALS: BP 117/68
[2017-05-17 15:54] VITALS: BP 119/50
[2017-05-17 20:00] VITALS: BP 117/70
[2017-05-18] VITALS: BP 117/72
[2017-05-18 04:00] VITALS: BP 102/60
[2017-05-18 07:01] LABS: HEMATOCRIT 28.1 % (42.0-54.0); HEMOGLOBIN 9.1 g/dL (13.5-17.5); MCH 29.2 pg (26.0-34.0); MCHC 32.4 g/dL (31.0-37.0); MCV 90.1 fL (80.0-100.0); MEAN PLATELET VOLUME 9.6 fL (7.4-10.4); PLATELET COUNT 738 10x3/uL (130-400); RBC 3.12 10x6/uL (4.20-6.10); RDW 17.2 % (11.5-14.5); WBC 24.5 10x3/uL (4.8-10.8)
[2017-05-18 07:12] LABS: ANION GAP 9.2 mmol/L (8-16); CARBON DIOXIDE 28.2 mmol/L (21.0-32.0); CREATININE - SERUM 1.1 mg/dL (0.6-1.3); POTASSIUM - SERUM 3.4 mmol/L (3.5-5.1)
[2017-05-18 07:17] LABS: EOSINOPHILS 3 % (0-7); LYMPHOCYTES 10 % (15-50); MONOCYTES 2 % (2-11); NEUTROPHILS 79 % (40-80); PLATELET ESTIMATE INCREASED; PLATELET MORPHOLOGY GIANT PLTS PRESENT
[2017-05-18 07:53] VITALS: BP 121/70
[2017-05-18 08:48] LABS: INR 1.2 (0.85-1.17); PROTIME 14.8 SECONDS (11.6-15.0)
[2017-05-18 12:44] VITALS: BP 120/75
[2017-05-18 15:56] VITALS: BP 142/75
[2017-05-18 20:00] VITALS: BP 111/64
[2017-05-19 04:00] VITALS: BP 130/72
[2017-05-19 05:07] LABS: IMMUNOGLOBULIN E 21 IU/mL (0-100)
[2017-05-19 08:10] LABS: BASOPHILS 0.5 % (0-2); EOSINOPHILS 1.3 % (0-7); HEMATOCRIT 28.5 % (42.0-54.0); HEMOGLOBIN 9.4 g/dL (13.5-17.5); LYMPHOCYTES 4.1 % (15-50); MCH 29.5 pg (26.0-34.0); MCV 89.3 fL (80.0-100.0); MEAN PLATELET VOLUME 9.5 fL (7.4-10.4); MONOCYTES 6.6 % (2-11); NEUTROPHILS 83.5 % (40-80); PLATELET COUNT 727 10x3/uL (130-400); RBC 3.19 10x6/uL (4.20-6.10); WBC 22.3 10x3/uL (4.8-10.8)
[2017-05-19 09:06] VITALS: BP 129/78
[2017-05-19 13:22] VITALS: BP 118/68
[2017-05-19 17:29] VITALS: BP 105/63
[2017-05-19 20:00] VITALS: BP 120/75
[2017-05-20] VITALS: BP 136/60
[2017-05-20 04:00] VITALS: BP 123/61
[2017-05-20 06:01] LABS: CALC OSMOLALITY 275 mosm/kg (275-300); CALCIUM 7.8 mg/dL (8.5-10.1); CHLORIDE - SERUM 104 mmol/L (98-107); CREATININE - SERUM 0.9 mg/dL (0.6-1.3); GLUCOSE 99 mg/dL (74-106); POTASSIUM - SERUM 3.4 mmol/L (3.5-5.1); SODIUM 138 mmol/L (136-145); UREA NITROGEN 12 mg/dL (7-18); eGFR NON AFRICAN AMERICAN 87 mL/min (90-120)
[2017-05-20 06:31] LABS: HEMATOCRIT 27.8 % (42.0-54.0); HEMOGLOBIN 9.2 g/dL (13.5-17.5); LYMPHOCYTES 5.6 % (15-50); MCH 29.8 pg (26.0-34.0); MCHC 33.1 g/dL (31.0-37.0); MEAN PLATELET VOLUME 9.2 fL (7.4-10.4); NEUTROPHILS 85.3 % (40-80); PLATELET COUNT 787 10x3/uL (130-400); RBC 3.09 10x6/uL (4.20-6.10); RDW 16.6 % (11.5-14.5); WBC 19.4 10x3/uL (4.8-10.8)
[2017-05-20 09:28] VITALS: BP 132/69
[2017-05-20 12:41] VITALS: BP 155/44
[2017-05-20 16:39] VITALS: BP 120/71
[2017-05-20 20:00] VITALS: BP 101/65
[2017-05-21] VITALS (7 sets, daily range): BP systolic 101–120; BP diastolic 56–77
[2017-05-21 06:03] LABS: BASOPHILS 0.3 % (0-2); EOSINOPHILS 1.8 % (0-7); HEMATOCRIT 28.5 % (42.0-54.0); HEMOGLOBIN 9.1 g/dL (13.5-17.5); MCHC 31.9 g/dL (31.0-37.0); MCV 90.8 fL (80.0-100.0); MEAN PLATELET VOLUME 9.6 fL (7.4-10.4); MONOCYTES 6.1 % (2-11); NEUTROPHILS 82.8 % (40-80); PLATELET COUNT 746 10x3/uL (130-400); RBC 3.14 10x6/uL (4.20-6.10); RDW 17.4 % (11.5-14.5); WBC 18.7 10x3/uL (4.8-10.8)
[2017-05-21 06:52] LABS: CALC OSMOLALITY 274 mosm/kg (275-300); CALCIUM 7.9 mg/dL (8.5-10.1); CHLORIDE - SERUM 103 mmol/L (98-107); CREATININE - SERUM 0.9 mg/dL (0.6-1.3); GLUCOSE 94 mg/dL (74-106); POTASSIUM - SERUM 3.8 mmol/L (3.5-5.1); SODIUM 137 mmol/L (136-145); UREA NITROGEN 15 mg/dL (7-18); eGFR NON AFRICAN AMERICAN 87 mL/min (90-120)
[2017-05-21 07:59] LABS: INR 1.38 (0.85-1.17); PROTIME 16.5 SECONDS (11.6-15.0)
[2017-05-22 04:00] VITALS: BP 133/71
[2017-05-22] MEDS ORDERED: FLAGYL500 MG PO (07:45)
[2017-05-22] MEDS ORDERED: LEVAQUIN750 MG PO (07:45)
[2017-05-22] MEDS ORDERED: IPRAT-ALBUT 0.5-3 ML UPD (07:46)
[2017-05-22] MEDS ORDERED: ULTRAM50 MG PO (07:46)
[2017-05-22] MEDS ORDERED: FLORAJEN3 CAPS460 MG PO (07:47)
[2017-05-22] MEDS ORDERED: THERAGRAN M [BK1 TAB PO (07:47)
[2017-05-22 09:30] VITALS: BP 131/73
[2017-05-22 12:40] VITALS: BP 110/70
[2017-05-22 15:25] LABS: AEROBE ID Final report (())
[2017-05-22 15:30] VITALS: BP 112/74
== END 2017-05-22 17:45 | disposition home health service (06) | DRG 329 ==
LOC: D.ER 09:49 → D.ICU 04-29 16:25 → D.MS 04-29 16:25 → D.ICU 05-11 20:25 → D.MS 05-14 21:09
PROVIDERS: Family Medicine; Internal Medicine Pulmonary Disease; Radiology Diagnostic Radiology; Student in an Organized Health Care Education/Training Program; Surgery
PROC: 0W9F30Z Drainage of Abdominal Wall with Drainage Device, Percutaneous Approach (ICD-10-PCS; 2017-05-02)
PROC: 02HV33Z Insertion of Infusion Device into Superior Vena Cava, Percutaneous Approach (ICD-10-PCS; 2017-05-07)
PROC: B548ZZA Ultrasonography of Superior Vena Cava, Guidance (ICD-10-PCS; 2017-05-07)
PROC: 0D1M0Z4 Bypass Descending Colon to Cutaneous, Open Approach (ICD-10-PCS; 2017-05-09)
PROC: 0DTN0ZZ Resection of Sigmoid Colon, Open Approach (ICD-10-PCS; principal; 2017-05-09 10:30)
PROC: 02HV33Z Insertion of Infusion Device into Superior Vena Cava, Percutaneous Approach (ICD-10-PCS; 2017-05-12)
PROC: B548ZZA Ultrasonography of Superior Vena Cava, Guidance (ICD-10-PCS; 2017-05-12)
PROC: 0W9F3ZZ Drainage of Abdominal Wall, Percutaneous Approach (ICD-10-PCS; 2017-05-21)
DX: K57.20 Diverticulitis of large intestine with perforation and abscess without bleeding (principal); A41.4 Sepsis due to anaerobes; K66.1 Hemoperitoneum; K83.1 Obstruction of bile duct; J69.0 Pneumonitis due to inhalation of food and vomit; G93.40 Encephalopathy, unspecified; J98.11 Atelectasis; J90 Pleural effusion, not elsewhere classified; E46 Unspecified protein-calorie malnutrition; R17 Unspecified jaundice; F05 Delirium due to known physiological condition; L02.211 Cutaneous abscess of abdominal wall; T81.4XXA Infection following a procedure, initial encounter; A04.72 Enterocolitis due to Clostridium difficile, not specified as recurrent; R33.9 Retention of urine, unspecified; W19.XXXA Unspecified fall, initial encounter; T40.2X5A Adverse effect of other opioids, initial encounter; D64.9 Anemia, unspecified; B96.20 Unspecified Escherichia coli [E. coli] as the cause of diseases classified elsewhere; D69.6 Thrombocytopenia, unspecified; I08.1 Rheumatic disorders of both mitral and tricuspid valves; Z68.24 Body mass index [BMI] 24.0-24.9, adult; R39.2 Extrarenal uremia; R00.8 Other abnormalities of heart beat; J44.9 Chronic obstructive pulmonary disease, unspecified; B99.9 Unspecified infectious disease; Y83.8 Other surgical procedures as the cause of abnormal reaction of the patient, or of later complication, without mention of misadventure at the time of the procedure

== ENCOUNTER 2017-05-23 19:34 | Emergency (ER) | payer MEDICARE ==
[2017-05-12 11:47] VITALS: BMI 24.3
[~2017-05-23 19:34] MED LIST changes: +FLAGYL500 MG PO; +FLORAJEN3 CAPS460 MG PO; +IPRAT-ALBUT 0.5-3 ML UPD; +LEVAQUIN750 MG PO; +THERAGRAN M [BK1 TAB PO; +ULTRAM50 MG PO
== END 2017-05-23 21:08 | disposition home or self-care (01) ==
LOC: D.ER 19:34
DX: T85.9XXA Unspecified complication of internal prosthetic device, implant and graft, initial encounter (principal)

== ENCOUNTER → 2017-05-27 19:59 | Outpatient (CLI) | payer MEDICARE ==
[2017-05-12 11:47] VITALS: BMI 24.3
[2017-05-27 20:28] LABS: BASOPHILS 0.1 % (0-2); EOSINOPHILS 1.8 % (0-7); HEMATOCRIT 29.6 % (42.0-54.0); HEMOGLOBIN 9.8 g/dL (13.5-17.5); IMMATURE GRANULOCYTES 0.6 % (0-5); LYMPHOCYTES 9.5 % (15-50); MCH 29.4 pg (26.0-34.0); MCHC 33.1 g/dL (31.0-37.0); MCV 88.9 fL (80.0-100.0); MEAN PLATELET VOLUME 9.3 fL (7.4-10.4); MONOCYTES 10.1 % (2-11); NEUTROPHILS 77.9 % (40-80); RBC 3.33 10x6/uL (4.20-6.10); RDW 17.6 % (11.5-14.5); WBC 13.1 10x3/uL (4.8-10.8)
[2017-05-27 20:31] LABS: PLATELET COUNT 545 10x3/uL (130-400)
[2017-05-27 20:45] LABS: CALC OSMOLALITY 272 mosm/kg (275-300); CALCIUM 8.5 mg/dL (8.5-10.1); CARBON DIOXIDE 26.9 mmol/L (21.0-32.0); CHLORIDE - SERUM 101 mmol/L (98-107); GLUCOSE 98 mg/dL (74-106); POTASSIUM - SERUM 3.7 mmol/L (3.5-5.1); SODIUM 135 mmol/L (136-145); UREA NITROGEN 20 mg/dL (7-18); eGFR NON AFRICAN AMERICAN 77 mL/min (90-120)
== END | disposition home or self-care (01) ==
LOC: D.LABREF 19:59
PROVIDERS: Family Medicine
DX: K57.20 Diverticulitis of large intestine with perforation and abscess without bleeding (principal); J44.9 Chronic obstructive pulmonary disease, unspecified; J18.9 Pneumonia, unspecified organism

== ENCOUNTER → 2017-06-04 10:52 | Outpatient (CLI) | payer MEDICARE ==
[2017-05-12 11:47] VITALS: BMI 24.3
[2017-06-04 12:06] LABS: CALC OSMOLALITY 278 mosm/kg (275-300); CALCIUM 8.4 mg/dL (8.5-10.1); CARBON DIOXIDE 27.7 mmol/L (21.0-32.0); CHLORIDE - SERUM 102 mmol/L (98-107); GLUCOSE 129 mg/dL (74-106); POTASSIUM - SERUM 4.1 mmol/L (3.5-5.1); PRE-ALBUMIN 18.8 mg/dL (18.0-35.7); SODIUM 138 mmol/L (136-145); UREA NITROGEN 14 mg/dL (7-18); eGFR NON AFRICAN AMERICAN 77 mL/min (90-120)
[2017-06-04 12:32] LABS: BASOPHILS 0.3 % (0-2); EOSINOPHILS 1.8 % (0-7); HEMATOCRIT 35.1 % (42.0-54.0); HEMOGLOBIN 11.4 g/dL (13.5-17.5); IMMATURE GRANULOCYTES 0.5 % (0-5); LYMPHOCYTES 8.4 % (15-50); MCH 29.5 pg (26.0-34.0); MCHC 32.5 g/dL (31.0-37.0); MCV 90.7 fL (80.0-100.0); MEAN PLATELET VOLUME 9.1 fL (7.4-10.4); MONOCYTES 7.5 % (2-11); NEUTROPHILS 81.5 % (40-80); PLATELET COUNT 546 10x3/uL (130-400); RBC 3.87 10x6/uL (4.20-6.10); RDW 17.5 % (11.5-14.5); WBC 14.1 10x3/uL (4.8-10.8)
== END | disposition home or self-care (01) ==
LOC: D.CT 10:52
PROVIDERS: Surgery
DX: K57.20 Diverticulitis of large intestine with perforation and abscess without bleeding (principal)

== ENCOUNTER → 2017-06-16 10:31 | Outpatient (CLI) | payer MEDICARE ==
[2017-05-12 11:47] VITALS: BMI 24.3
== END | disposition home or self-care (01) ==
LOC: D.CT 10:31
DX: K57.20 Diverticulitis of large intestine with perforation and abscess without bleeding (principal)

== ENCOUNTER → 2017-06-20 12:14 | Outpatient (CLI) | payer MEDICARE ==
[2017-05-12 11:47] VITALS: BMI 24.3
[2017-06-20 12:44] LABS: BASOPHILS 0.7 % (0-2); EOSINOPHILS 4.8 % (0-7); HEMOGLOBIN 10.6 g/dL (13.5-17.5); IMMATURE GRANULOCYTES 0.7 % (0-5); LYMPHOCYTES 15.5 % (15-50); MCH 29.2 pg (26.0-34.0); MCHC 32.1 g/dL (31.0-37.0); MCV 90.9 fL (80.0-100.0); MEAN PLATELET VOLUME 9.2 fL (7.4-10.4); NEUTROPHILS 68.3 % (40-80); RBC 3.63 10x6/uL (4.20-6.10); RDW 17.1 % (11.5-14.5); WBC 7.6 10x3/uL (4.8-10.8)
[2017-06-20 12:52] LABS: ALBUMIN 2.7 g/dL (3.4-5.0); ALKALINE PHOSPHATASE 84 U/L (46-116); ALT (SGPT) 20 U/L (10-68); CALC OSMOLALITY 278 mosm/kg (275-300); CALCIUM 8.8 mg/dL (8.5-10.1); CARBON DIOXIDE 25.5 mmol/L (21.0-32.0); CHLORIDE - SERUM 106 mmol/L (98-107); CREATININE - SERUM 0.7 mg/dL (0.6-1.3); GLUCOSE 108 mg/dL (74-106); POTASSIUM - SERUM 4.6 mmol/L (3.5-5.1); PROTEIN - SERUM 6.5 g/dL (6.4-8.2); SODIUM 138 mmol/L (136-145); UREA NITROGEN 18 mg/dL (7-18); eGFR NON AFRICAN AMERICAN > 90 mL/min (90-120)
[2017-06-20 12:54] LABS: PLATELET COUNT 415 10x3/uL (130-400)
== END | disposition home or self-care (01) ==
LOC: D.LABREF 12:14
PROVIDERS: Family Medicine
DX: I82.401 Acute embolism and thrombosis of unspecified deep veins of right lower extremity (principal); L02.415 Cutaneous abscess of right lower limb; K66.8 Other specified disorders of peritoneum

== ENCOUNTER 2017-09-09 10:59 | Day surgery (SDC) | payer MEDICARE ==
--- NOTE | ~2017-09-09 | OP ---
PATIENT NAME: TONG CORREA MEDICAL RECORD: [id number] :42 LOCATION:D.OPS ADMISSION DATE: SURGEON: NARESH MC MD DATE OF OPERATION: 09/09/2017 SURGEON: Naresh Mc MD PREOPERATIVE DIAGNOSES: 1. History of perforated diverticulitis. 2. Colostomy present. POSTOPERATIVE DIAGNOSES: 1. History of perforated diverticulitis. 2. Colostomy present. PROCEDURE PERFORMED: 1. Flexible proctoscopy. 2. Colonoscopy. COMPLICATIONS: None. SPECIMENS: Transverse colon polyp. ESTIMATED BLOOD LOSS: Minimal. OPERATIVE COURSE: After consent was obtained, the patient was taken to the endoscopy suite. A timeout was taken to confirm the correct patient and procedure. Total intravenous anesthesia was given. The patient was placed in left lateral decubitus position. Digital rectal exam was performed. The flexible colonoscope was inserted through the rectum, the anus was insufflated. The scope was passed approximately 15 to 20 cm until the staple line was reached. There were no abnormalities of the rectum identified. Next the patient was placed in the supine position. His ostomy appliance was removed. The gastroscope was passed into the colostomy. Colonoscopy proceeded to the ileocecal valve approximately 15 minutes was spent on withdrawal of the scope. A large tubular adenoma was identified in the transverse colon. This was taken with snare polypectomy with cautery. There was some diverticular disease noted in the descending colon, approximately 15 minutes was spent on withdrawal of the scope. At the end of the procedure, all needle and instrument counts were correct. No complications occurred. The patient was taken to the recovery room in satisfactory condition. TRANSINT:[id number] Voice Confirmation ID: [id number] DOCUMENT ID: [id number] NARESH MC MD at 1423 CC: [id number] DICTATION DATE: 09/29/17 1135 CONSOLE ATTENDANT: 09/29/17 1[facility] 09/09/17 [place] [address]
[2017-09-09 11:45] LABS: BASOPHILS 0.6 % (0-2); EOSINOPHILS 3.5 % (0-7); HEMATOCRIT 42.9 % (42.0-54.0); HEMOGLOBIN 14.9 g/dL (13.5-17.5); IMMATURE GRANULOCYTES 0.4 % (0-5); LYMPHOCYTES 18.2 % (15-50); MCHC 34.7 g/dL (31.0-37.0); MCV 89.4 fL (80.0-100.0); MEAN PLATELET VOLUME 9.6 fL (7.4-10.4); MONOCYTES 9.1 % (2-11); NEUTROPHILS 68.2 % (40-80); PLATELET COUNT 407 10x3/uL (130-400); RDW 14.3 % (11.5-14.5); WBC 7.1 10x3/uL (4.8-10.8)
[2017-09-09 12:02] LABS: CALC OSMOLALITY 282 mosm/kg (275-300); CALCIUM 9.2 mg/dL (8.5-10.1); CARBON DIOXIDE 28.4 mmol/L (21.0-32.0); CHLORIDE - SERUM 104 mmol/L (98-107); GLUCOSE 105 mg/dL (74-106); POTASSIUM - SERUM 4.2 mmol/L (3.5-5.1); SODIUM 142 mmol/L (136-145); UREA NITROGEN 12 mg/dL (7-18); eGFR NON AFRICAN AMERICAN 77 mL/min (90-120)
[2017-09-09 12:07] VITALS: BP 128/81; BMI 23.6
[2017-09-17 07:29] VITALS: BMI 24.0
== END 2017-09-09 16:00 | disposition home or self-care (01) ==
LOC: D.SDCHOLD 10:59 → D.OPS 10:59 → EDSTATUS 13:00 → D.SDCHOLD 13:00 → D.OPS 16:00 → D.SDCHOLD 16:00
PROVIDERS: Anesthesiology; Surgery
PROC: 0DBN8ZZ Excision of Sigmoid Colon, Via Natural or Artificial Opening Endoscopic (ICD-10-PCS; principal; 2017-09-09 13:00)
DX: K57.32 Diverticulitis of large intestine without perforation or abscess without bleeding (principal); I25.10 Atherosclerotic heart disease of native coronary artery without angina pectoris; J44.9 Chronic obstructive pulmonary disease, unspecified; Z01.812 Encounter for preprocedural laboratory examination; D12.3 Benign neoplasm of transverse colon

== ENCOUNTER 2017-09-15 07:17 | Inpatient (IN) | payer MEDICARE ==
[~2017-09-15] VITALS: Ht 172.7 cm; Wt 71.8 kg
--- NOTE | ~2017-09-15 | OP ---
PATIENT NAME: TONG CORREA MEDICAL RECORD: [id number] :42 LOCATION:D.[facility] Braun2203 ADMISSION DATE:09/15/17 SURGEON: NARESH MC MD DATE OF OPERATION: 09/15/2017 SURGEON: Naresh Mc MD HOSPITAL CLEANER: Kerline Osman APRN PREOPERATIVE DIAGNOSES: 1. History of perforated diverticulitis. 2. History of Seth's procedure. POSTOPERATIVE DIAGNOSES: 1. History of perforated diverticulitis. 2. History of Seth's procedure. PROCEDURES PERFORMED: 1. Colostomy takedown. 2. Mobilization of splenic flexure. 3. Lysis of adhesions and scar revision. ANESTHESIA: General. COMPLICATIONS: None. SPECIMENS: Anastomotic donut. Case was contaminated. ESTIMATED BLOOD LOSS: 500 cc. OPERATIVE COURSE: After consent was obtained, the patient was taken to the operating room and placed in supine position on the operating table. Next, general anesthesia was given via endotracheal intubation. After the intubation and time-out were complete, the patient was placed in the lithotomy position. The abdomen and perineum were prepped and draped in typical sterile fashion. Ioban dressing was placed. The patient's lower midline scar was approximately 5 cm wide and 6 cm long. The scar was excised using a 15 blade scalpel. Dissection was continued down to the level of the fascia using electrocautery. The fascia was opened with Metzenbaum scissors. Remaining portion of the incision was then opened under direct vision. An incision was made from the umbilicus to the pubic tubercle. Approximately, 30 minutes was spent on intra-abdominal lysis of adhesions. The small bowel was run from the ligament of Treitz to the terminal ileum on two occasions. Multiple serosal defects were treated with 3-0 silk suture. Next, the Tree retractor was placed. The small bowel was placed up into the left upper quadrant. Prolene suture tags from previous Seth's procedure were identified on the rectum using right angle forceps and electrocautery. The peritoneum was incised using electrocautery. Circumferential dissection of the rectum was performed. The presacral fascia plane was developed to allow full mobilization of the rectum. Once this was complete, the Ioban dressing was removed from the left lower quadrant. The ostomy site was sewn shut with an 0 silk suture. The skin was incised using electrocautery. The colostomy was dissected all the way down through the level of the anterior abdominal wall using electrocautery. The colon was placed back OPERATIVE REPORT [id number] TONG CORREA into the abdomen. The hernia sac and the ostomy was dissected out. The fascial defect was closed with interrupted [id number] 0 Prolene suture. At this time, the white line of Toldt was taken down along the left pericolic gutter. The splenic flexure was mobilized to allow for adequate length for the colorectal anastomosis. Once this was complete, my esol teacher assistant, Kerline Osman, serially dilated the rectum using the rectal dilators. She then passed a 29 EEA stapler to rectum. The spike was deployed at the rectal staple line. A colotomy was made in the descending colon. The 29-mm anvil was placed in the colon. A 5 cm portion of the colon was then excised using the CHASE stapler. A small colotomy was then made using Bovie. The anvil was passed through the colotomy and the anvil was attached to the EEA spike. The EEA anastomotic stapler was then used to create a colorectal anastomosis. The EEA stapler was removed with two intact donuts in the anvil. The anastomosis was then imbricated using interrupted 3-0 silk suture as well as to seal. At this time, all gown, gloves and instrument trace were changed. The abdomen was copiously irrigated and suctioned. A skin incision was made in the left lower quadrant and a JOJO drain was passed in the left lower quadrant and placed into the pelvis. The Tree retractor was removed. The subcutaneous tissue flaps were created to allow for adequate closure of the midline abdomen. The patient had developed an incisional hernia at the previous midline incision site. Once we had adequate subcutaneous tissue dissection, the fascia was closed with #1 looped PDS. The skin was reapproximated with sukhdev. Both incisions were then lightly packed with iodine-impregnated gauze. Bulky gauze dressings were placed. The JOJO drain was secured in the left lower quadrant using nylon suture. At the end of the case, all needle and instrument counts were correct. No complications occurred. The patient will be extubated and transferred to the PACU in stable condition. TRANSINT:[id number] Voice Confirmation ID: [id number] DOCUMENT ID: [id number] NARESH MC MD at 0734 CC: [id number] DICTATION DATE: 09/15/17 1631 LOAF COUNTER: 09/15/172022 ADM IN [facility] [address] [id number]
[2017-09-15 08:17] VITALS: BP 134/70; BMI 22.8
[2017-09-15 17:58] VITALS: BP 156/83
[2017-09-16 08:30] VITALS: BP 130/79
[2017-09-16 09:21] LABS: BASOPHILS 0.2 % (0-2); EOSINOPHILS 0 % (0-7); HEMATOCRIT 40.4 % (42.0-54.0); IMMATURE GRANULOCYTES 0.2 % (0-5); MCH 30.9 pg (26.0-34.0); MCHC 34.7 g/dL (31.0-37.0); MCV 89.2 fL (80.0-100.0); MEAN PLATELET VOLUME 9.5 fL (7.4-10.4); MONOCYTES 14.3 % (2-11); NEUTROPHILS 80.3 % (40-80); PLATELET COUNT 431 10x3/uL (130-400); RBC 4.53 10x6/uL (4.20-6.10); RDW 14.5 % (11.5-14.5); WBC 12.7 10x3/uL (4.8-10.8)
[2017-09-16 09:29] LABS: ANION GAP 11.3 mmol/L (8-16); CALCIUM 8.8 mg/dL (8.5-10.1); CARBON DIOXIDE 27.6 mmol/L (21.0-32.0); CREATININE - SERUM 1.5 mg/dL (0.6-1.3); MAGNESIUM - SERUM 1.7 mg/dL (1.8-2.4); POTASSIUM - SERUM 4.9 mmol/L (3.5-5.1)
[2017-09-16 10:53] VITALS: BMI 22.8
[2017-09-16 12:44] VITALS: BP 123/80
[2017-09-16 15:49] VITALS: BP 142/79
[2017-09-16 20:00] VITALS: BP 137/73
[2017-09-17] VITALS (7 sets, daily range): BP systolic 125–136; BP diastolic 69–77; Ht 172.7 cm; Wt 71.8 kg
[2017-09-17 06:22] LABS: BASOPHILS 0.2 % (0-2); EOSINOPHILS 0.5 % (0-7); HEMATOCRIT 33.4 % (42.0-54.0); HEMOGLOBIN 11.4 g/dL (13.5-17.5); IMMATURE GRANULOCYTES 0.3 % (0-5); LYMPHOCYTES 7.1 % (15-50); MCH 30.4 pg (26.0-34.0); MCHC 34.1 g/dL (31.0-37.0); MCV 89.1 fL (80.0-100.0); MEAN PLATELET VOLUME 9.6 fL (7.4-10.4); MONOCYTES 13.5 % (2-11); NEUTROPHILS 78.4 % (40-80); PLATELET COUNT 404 10x3/uL (130-400); RBC 3.75 10x6/uL (4.20-6.10); RDW 14.6 % (11.5-14.5); WBC 11.8 10x3/uL (4.8-10.8)
[2017-09-17 06:46] LABS: ANION GAP 8.9 mmol/L (8-16); CALCIUM 8.5 mg/dL (8.5-10.1); CARBON DIOXIDE 29.1 mmol/L (21.0-32.0); CREATININE - SERUM 1.3 mg/dL (0.6-1.3); MAGNESIUM - SERUM 1.8 mg/dL (1.8-2.4)
[2017-09-18 04:35] VITALS: BP 134/75
[2017-09-18 05:25] LABS: BASOPHILS 0.2 % (0-2); EOSINOPHILS 3.7 % (0-7); HEMATOCRIT 32.6 % (42.0-54.0); HEMOGLOBIN 10.9 g/dL (13.5-17.5); IMMATURE GRANULOCYTES 0.2 % (0-5); LYMPHOCYTES 10.4 % (15-50); MCHC 33.4 g/dL (31.0-37.0); MCV 89.8 fL (80.0-100.0); MEAN PLATELET VOLUME 9.4 fL (7.4-10.4); NEUTROPHILS 75.5 % (40-80); PLATELET COUNT 401 10x3/uL (130-400); RBC 3.63 10x6/uL (4.20-6.10); RDW 14.4 % (11.5-14.5); WBC 10.5 10x3/uL (4.8-10.8)
[2017-09-18 05:39] LABS: CALC OSMOLALITY 280 mosm/kg (275-300); CALCIUM 8.6 mg/dL (8.5-10.1); CARBON DIOXIDE 30.4 mmol/L (21.0-32.0); CHLORIDE - SERUM 103 mmol/L (98-107); GLUCOSE 109 mg/dL (74-106); POTASSIUM - SERUM 3.9 mmol/L (3.5-5.1); SODIUM 140 mmol/L (136-145); eGFR NON AFRICAN AMERICAN 77 mL/min (90-120)
[2017-09-18 05:45] LABS: UREA NITROGEN 15 mg/dL (7-18)
[2017-09-18 08:14] VITALS: BP 123/63
[2017-09-18 13:15] VITALS: BP 104/60
[2017-09-18 16:16] VITALS: BP 115/59
[2017-09-18 20:32] VITALS: BP 123/70
[2017-09-19 04:07] LABS: BASOPHILS 0.2 % (0-2); EOSINOPHILS 9.1 % (0-7); HEMATOCRIT 32.1 % (42.0-54.0); HEMOGLOBIN 10.8 g/dL (13.5-17.5); IMMATURE GRANULOCYTES 0.2 % (0-5); LYMPHOCYTES 12.5 % (15-50); MCH 30.1 pg (26.0-34.0); MCHC 33.6 g/dL (31.0-37.0); MCV 89.4 fL (80.0-100.0); MEAN PLATELET VOLUME 9.4 fL (7.4-10.4); MONOCYTES 10.6 % (2-11); NEUTROPHILS 67.4 % (40-80); PLATELET COUNT 417 10x3/uL (130-400); RBC 3.59 10x6/uL (4.20-6.10); RDW 14.3 % (11.5-14.5)
[2017-09-19 04:14] LABS: CALC OSMOLALITY 276 mosm/kg (275-300); CALCIUM 8.5 mg/dL (8.5-10.1); CARBON DIOXIDE 30.1 mmol/L (21.0-32.0); CHLORIDE - SERUM 103 mmol/L (98-107); CREATININE - SERUM 0.9 mg/dL (0.6-1.3); GLUCOSE 101 mg/dL (74-106); SODIUM 138 mmol/L (136-145); UREA NITROGEN 14 mg/dL (7-18); eGFR NON AFRICAN AMERICAN 87 mL/min (90-120)
[2017-09-19 04:16] VITALS: BP 99/58
[2017-09-19 08:07] VITALS: BP 125/58
[2017-09-19 15:30] VITALS: BP 113/61
[2017-09-19 19:51] VITALS: BP 110/62
[2017-09-20 04:11] VITALS: BP 86/53
[2017-09-20 04:59] LABS: BASOPHILS 0.4 % (0-2); EOSINOPHILS 7.4 % (0-7); HEMATOCRIT 31.2 % (42.0-54.0); HEMOGLOBIN 10.7 g/dL (13.5-17.5); IMMATURE GRANULOCYTES 0.5 % (0-5); LYMPHOCYTES 8.6 % (15-50); MCH 30.6 pg (26.0-34.0); MCHC 34.3 g/dL (31.0-37.0); MCV 89.1 fL (80.0-100.0); MEAN PLATELET VOLUME 9.1 fL (7.4-10.4); MONOCYTES 9.6 % (2-11); NEUTROPHILS 73.5 % (40-80); PLATELET COUNT 459 10x3/uL (130-400); RDW 14.4 % (11.5-14.5)
[2017-09-20 05:02] LABS: ANION GAP 9.2 mmol/L (8-16); CALCIUM 8.6 mg/dL (8.5-10.1); CARBON DIOXIDE 30.7 mmol/L (21.0-32.0); POTASSIUM - SERUM 3.9 mmol/L (3.5-5.1)
[2017-09-20 05:03] LABS: CREATININE - SERUM 1.3 mg/dL (0.6-1.3)
[2017-09-20 07:53] VITALS: BP 124/75
[2017-09-20 12:28] VITALS: BP 116/69
[2017-09-20 16:00] VITALS: BP 129/77
[2017-09-20 20:55] VITALS: BP 107/65
[2017-09-21 00:47] VITALS: BP 108/60
[2017-09-21 05:04] VITALS: BP 125/76
[2017-09-21 05:04] LABS: BASOPHILS 0.2 % (0-2); EOSINOPHILS 6.5 % (0-7); HEMATOCRIT 31.6 % (42.0-54.0); HEMOGLOBIN 10.5 g/dL (13.5-17.5); IMMATURE GRANULOCYTES 0.7 % (0-5); MCH 29.9 pg (26.0-34.0); MCHC 33.2 g/dL (31.0-37.0); MEAN PLATELET VOLUME 9.5 fL (7.4-10.4); NEUTROPHILS 72.6 % (40-80); PLATELET COUNT 550 10x3/uL (130-400); RBC 3.51 10x6/uL (4.20-6.10); RDW 14.2 % (11.5-14.5); WBC 12.2 10x3/uL (4.8-10.8)
[2017-09-21 05:22] LABS: CALCIUM 8.4 mg/dL (8.5-10.1); CARBON DIOXIDE 30.8 mmol/L (21.0-32.0); CREATININE - SERUM 1.1 mg/dL (0.6-1.3); POTASSIUM - SERUM 3.8 mmol/L (3.5-5.1)
[2017-09-21 08:04] VITALS: BP 117/57
[2017-09-21 12:34] VITALS: BP 122/71
[2017-09-21 16:03] VITALS: BP 130/68
[2017-09-21 21:46] VITALS: BP 127/64
[2017-09-22 00:38] VITALS: BP 115/54
[2017-09-22 04:35] VITALS: BP 134/64
[2017-09-22 07:45] VITALS: BP 112/58
[2017-09-22] MEDS ORDERED: LEVAQUIN500 MG PO (11:01)
[2017-09-22] MEDS ORDERED: HYDROCODON-ACE1 EAC7 PO (11:01)
[2017-09-22] MEDS ORDERED: MIRALAX17 GM PO (11:01)
== END 2017-09-22 12:53 | disposition home health service (06) | DRG 331 ==
LOC: D.SDCHOLD 07:17 → D.MS 07:17 → D.SDCHOLD 09:45 → D.PAN 09:45 → D.OPS 09:45 → EDSTATUS 09:45 → D.MS 17:16
PROVIDERS: Surgery
PROC: 0DNL0ZZ Release Transverse Colon, Open Approach (ICD-10-PCS; 2017-09-15)
PROC: 0DBM0ZZ Excision of Descending Colon, Open Approach (ICD-10-PCS; principal; 2017-09-15 09:45)
PROC: 0DNW0ZZ Release Peritoneum, Open Approach (ICD-10-PCS; 2017-09-15 09:45)
DX: Z43.3 Encounter for attention to colostomy (principal); D64.9 Anemia, unspecified

== ENCOUNTER 2017-09-27 18:12 | Inpatient (IN) | payer MEDICARE ==
[~2017-09-27] VITALS: Ht 172.7 cm; Wt 66.2 kg
[~2017-09-27 18:12] MED LIST changes: +HYDROCODON-ACE1 EAC7 PO; +LEVAQUIN500 MG PO; +MIRALAX17 GM PO
[2017-09-27 20:26] LABS: BASOPHILS 0.2 % (0-2); EOSINOPHILS 1.4 % (0-7); HEMATOCRIT 35.3 % (42.0-54.0); HEMOGLOBIN 11.9 g/dL (13.5-17.5); IMMATURE GRANULOCYTES 0.7 % (0-5); LYMPHOCYTES 6.3 % (15-50); MCH 30.4 pg (26.0-34.0); MCHC 33.7 g/dL (31.0-37.0); MCV 90.1 fL (80.0-100.0); MEAN PLATELET VOLUME 9.1 fL (7.4-10.4); MONOCYTES 6.1 % (2-11); NEUTROPHILS 85.3 % (40-80); PLATELET COUNT 741 10x3/uL (130-400); RBC 3.92 10x6/uL (4.20-6.10); RDW 14.4 % (11.5-14.5); WBC 16.4 10x3/uL (4.8-10.8)
[2017-09-27 20:35] VITALS: BP 132/77
[2017-09-27 20:40] LABS: ALBUMIN 3.1 g/dL (3.4-5.0); ANION GAP 13.5 mmol/L (8-16); BILIRUBIN - TOTAL 0.47 mg/dL (0.2-1.3); CALCIUM 9.8 mg/dL (8.5-10.1); CARBON DIOXIDE 30.2 mmol/L (21.0-32.0); CREATININE - SERUM 1.2 mg/dL (0.6-1.3); POTASSIUM - SERUM 4.7 mmol/L (3.5-5.1); PROTEIN - SERUM 7.3 g/dL (6.4-8.2)
[2017-09-28 01:06] VITALS: BP 107/59; BMI 22.2
[2017-09-28 03:23] VITALS: BP 99/61
[2017-09-28 06:00] LABS: BASOPHILS 0.1 % (0-2); EOSINOPHILS 2.2 % (0-7); HEMATOCRIT 33.3 % (42.0-54.0); HEMOGLOBIN 10.9 g/dL (13.5-17.5); IMMATURE GRANULOCYTES 0.5 % (0-5); LYMPHOCYTES 6.8 % (15-50); MCH 29.5 pg (26.0-34.0); MCHC 32.7 g/dL (31.0-37.0); MEAN PLATELET VOLUME 9.1 fL (7.4-10.4); MONOCYTES 7.7 % (2-11); NEUTROPHILS 82.7 % (40-80); PLATELET COUNT 735 10x3/uL (130-400); RDW 14.3 % (11.5-14.5); WBC 14.1 10x3/uL (4.8-10.8)
[2017-09-28 06:10] LABS: ANION GAP 11.9 mmol/L (8-16); CALCIUM 8.7 mg/dL (8.5-10.1); CARBON DIOXIDE 28.8 mmol/L (21.0-32.0); CREATININE - SERUM 1.1 mg/dL (0.6-1.3)
[2017-09-28 06:11] LABS: POTASSIUM - SERUM 3.7 mmol/L (3.5-5.1)
[2017-09-28 08:43] VITALS: BP 109/65
[2017-09-28 11:37] VITALS: BP 106/60
[2017-09-28 15:26] VITALS: BP 102/56
[2017-09-28 20:55] VITALS: BP 115/63
[2017-09-29 04:00] VITALS: BP 125/73
[2017-09-29 08:33] VITALS: BP 128/68
[2017-09-29 12:49] VITALS: BP 112/65
[2017-09-29 13:19] VITALS: BMI 22.1
[2017-09-29 16:58] VITALS: BP 121/72
[2017-09-29 19:28] VITALS: BP 114/62
[2017-09-30 00:51] VITALS: BP 110/63
[2017-09-30 04:28] VITALS: BP 99/60
[2017-09-30 05:17] LABS: BASOPHILS 0.2 % (0-2); EOSINOPHILS 4.5 % (0-7); HEMATOCRIT 34.3 % (42.0-54.0); HEMOGLOBIN 11.3 g/dL (13.5-17.5); IMMATURE GRANULOCYTES 0.3 % (0-5); LYMPHOCYTES 11.4 % (15-50); MCH 29.8 pg (26.0-34.0); MCHC 32.9 g/dL (31.0-37.0); MCV 90.5 fL (80.0-100.0); MEAN PLATELET VOLUME 8.9 fL (7.4-10.4); MONOCYTES 12.8 % (2-11); NEUTROPHILS 70.8 % (40-80); PLATELET COUNT 686 10x3/uL (130-400); RBC 3.79 10x6/uL (4.20-6.10); RDW 14.1 % (11.5-14.5); WBC 9.6 10x3/uL (4.8-10.8)
[2017-09-30 05:47] LABS: CALC OSMOLALITY 290 mosm/kg (275-300); CALCIUM 8.9 mg/dL (8.5-10.1); CARBON DIOXIDE 33.4 mmol/L (21.0-32.0); CHLORIDE - SERUM 103 mmol/L (98-107); GLUCOSE 101 mg/dL (74-106); MAGNESIUM - SERUM 2.1 mg/dL (1.8-2.4); POTASSIUM - SERUM 3.3 mmol/L (3.5-5.1); SODIUM 143 mmol/L (136-145); UREA NITROGEN 28 mg/dL (7-18)
[2017-09-30 05:50] LABS: CREATININE - SERUM 0.8 mg/dL (0.6-1.3); eGFR NON AFRICAN AMERICAN > 90 mL/min (90-120)
[2017-09-30 08:01] VITALS: BP 118/70
[2017-09-30 13:06] VITALS: BP 117/72
[2017-09-30 16:25] VITALS: BP 120/68
[2017-09-30 19:51] VITALS: BP 145/79
[2017-10-01 00:10] VITALS: BP 110/70
[2017-10-01 04:45] VITALS: BP 122/74
[2017-10-01 06:43] LABS: CALC OSMOLALITY 284 mosm/kg (275-300); CALCIUM 9.3 mg/dL (8.5-10.1); CARBON DIOXIDE 35.6 mmol/L (21.0-32.0); CHLORIDE - SERUM 98 mmol/L (98-107); GLUCOSE 100 mg/dL (74-106); POTASSIUM - SERUM 3.5 mmol/L (3.5-5.1); SODIUM 139 mmol/L (136-145); UREA NITROGEN 31 mg/dL (7-18); eGFR NON AFRICAN AMERICAN 77 mL/min (90-120)
[2017-10-01 07:22] LABS: BASOPHILS 0.3 % (0-2); EOSINOPHILS 4.1 % (0-7); HEMATOCRIT 37.4 % (42.0-54.0); HEMOGLOBIN 12.3 g/dL (13.5-17.5); IMMATURE GRANULOCYTES 0.3 % (0-5); LYMPHOCYTES 13.4 % (15-50); MCH 29.6 pg (26.0-34.0); MCHC 32.9 g/dL (31.0-37.0); MCV 90.1 fL (80.0-100.0); MEAN PLATELET VOLUME 9.4 fL (7.4-10.4); MONOCYTES 11.9 % (2-11); PLATELET COUNT 796 10x3/uL (130-400); RBC 4.15 10x6/uL (4.20-6.10); WBC 10.9 10x3/uL (4.8-10.8)
[2017-10-01 08:10] VITALS: BP 105/72
[2017-10-01 16:48] VITALS: BP 109/77
[2017-10-01 20:06] VITALS: BP 108/74
[2017-10-01 23:54] VITALS: BP 103/79
[2017-10-02 04:01] VITALS: BP 120/71
[2017-10-02 05:46] LABS: BASOPHILS 0.3 % (0-2); EOSINOPHILS 1.1 % (0-7); HEMATOCRIT 42.6 % (42.0-54.0); HEMOGLOBIN 14.5 g/dL (13.5-17.5); IMMATURE GRANULOCYTES 0.7 % (0-5); LYMPHOCYTES 8.1 % (15-50); MCH 30.3 pg (26.0-34.0); MCV 88.9 fL (80.0-100.0); MEAN PLATELET VOLUME 9.4 fL (7.4-10.4); MONOCYTES 9.5 % (2-11); NEUTROPHILS 80.3 % (40-80); PLATELET COUNT 940 10x3/uL (130-400); RBC 4.79 10x6/uL (4.20-6.10); RDW 14.2 % (11.5-14.5)
[2017-10-02 05:50] LABS: WBC 15.6 10x3/uL (4.8-10.8)
[2017-10-02 06:18] LABS: ANION GAP 14.9 mmol/L (8-16); CALCIUM 10.6 mg/dL (8.5-10.1); CARBON DIOXIDE 34.7 mmol/L (21.0-32.0); CREATININE - SERUM 1.8 mg/dL (0.6-1.3); POTASSIUM - SERUM 3.6 mmol/L (3.5-5.1)
[2017-10-02 07:47] VITALS: BP 107/69
[2017-10-02 12:13] VITALS: BP 97/59
[2017-10-02 15:58] VITALS: BP 105/59
[2017-10-02 20:06] VITALS: BP 97/55
[2017-10-03] VITALS: BP 101/64
[2017-10-03 04:09] VITALS: BP 108/64
[2017-10-03 05:36] LABS: BASOPHILS 0.4 % (0-2); EOSINOPHILS 5.1 % (0-7); HEMATOCRIT 36.7 % (42.0-54.0); HEMOGLOBIN 12.2 g/dL (13.5-17.5); IMMATURE GRANULOCYTES 0.7 % (0-5); LYMPHOCYTES 10.1 % (15-50); MCHC 33.2 g/dL (31.0-37.0); MCV 90.4 fL (80.0-100.0); MEAN PLATELET VOLUME 9.2 fL (7.4-10.4); MONOCYTES 9.8 % (2-11); NEUTROPHILS 73.9 % (40-80); RBC 4.06 10x6/uL (4.20-6.10); RDW 14.1 % (11.5-14.5); WBC 12.3 10x3/uL (4.8-10.8)
[2017-10-03 05:41] LABS: PLATELET COUNT 713 10x3/uL (130-400)
[2017-10-03 05:49] LABS: ANION GAP 8.6 mmol/L (8-16); CALCIUM 8.9 mg/dL (8.5-10.1); CARBON DIOXIDE 37.3 mmol/L (21.0-32.0); CREATININE - SERUM 1.8 mg/dL (0.6-1.3)
[2017-10-03 05:53] LABS: POTASSIUM - SERUM 2.9 mmol/L (3.5-5.1)
[2017-10-03 09:20] VITALS: BP 116/69
[2017-10-03 14:02] VITALS: Ht 172.7 cm; Wt 66.2 kg
[2017-10-03 14:38] VITALS: BP 121/69
[2017-10-03 17:07] VITALS: BP 122/66
[2017-10-03 20:42] VITALS: BP 106/64
[2017-10-04 00:28] VITALS: BP 124/68
[2017-10-04 04:10] VITALS: BP 123/72
[2017-10-04 06:31] LABS: BASOPHILS 0.5 % (0-2); EOSINOPHILS 5.6 % (0-7); HEMATOCRIT 38.2 % (42.0-54.0); HEMOGLOBIN 12.3 g/dL (13.5-17.5); IMMATURE GRANULOCYTES 0.8 % (0-5); LYMPHOCYTES 15.3 % (15-50); MCH 29.6 pg (26.0-34.0); MCHC 32.2 g/dL (31.0-37.0); MCV 91.8 fL (80.0-100.0); MEAN PLATELET VOLUME 9.5 fL (7.4-10.4); MONOCYTES 9.5 % (2-11); NEUTROPHILS 68.3 % (40-80); PLATELET COUNT 693 10x3/uL (130-400); RBC 4.16 10x6/uL (4.20-6.10); WBC 10.7 10x3/uL (4.8-10.8)
[2017-10-04 06:54] LABS: ANION GAP 6.6 mmol/L (8-16); CARBON DIOXIDE 37.3 mmol/L (21.0-32.0); CREATININE - SERUM 1.3 mg/dL (0.6-1.3)
[2017-10-04 06:55] LABS: POTASSIUM - SERUM 2.9 mmol/L (3.5-5.1)
[2017-10-04 08:31] VITALS: BP 128/74
[2017-10-04 12:45] VITALS: BP 139/82
[2017-10-04 17:56] VITALS: BP 119/71
[2017-10-04 22:18] VITALS: BP 140/77
[2017-10-05 04:10] VITALS: BP 117/70
[2017-10-05 06:16] LABS: BASOPHILS 0.2 % (0-2); EOSINOPHILS 5.4 % (0-7); HEMATOCRIT 38.4 % (42.0-54.0); HEMOGLOBIN 12.7 g/dL (13.5-17.5); IMMATURE GRANULOCYTES 1.1 % (0-5); LYMPHOCYTES 13.1 % (15-50); MCH 29.9 pg (26.0-34.0); MCHC 33.1 g/dL (31.0-37.0); MCV 90.4 fL (80.0-100.0); MEAN PLATELET VOLUME 9.5 fL (7.4-10.4); MONOCYTES 8.3 % (2-11); NEUTROPHILS 71.9 % (40-80); PLATELET COUNT 612 10x3/uL (130-400); RBC 4.25 10x6/uL (4.20-6.10); RDW 13.7 % (11.5-14.5); WBC 12.8 10x3/uL (4.8-10.8)
[2017-10-05 06:37] LABS: ANION GAP 7.8 mmol/L (8-16); CALCIUM 9.3 mg/dL (8.5-10.1); CARBON DIOXIDE 34.5 mmol/L (21.0-32.0); CREATININE - SERUM 1.2 mg/dL (0.6-1.3)
[2017-10-05 06:41] LABS: POTASSIUM - SERUM 4.3 mmol/L (3.5-5.1)
[2017-10-05 09:20] VITALS: BP 106/65
[2017-10-05 12:03] VITALS: BP 102/57
[2017-10-05 15:39] VITALS: BP 118/74
[2017-10-05 21:48] VITALS: BP 137/84
[2017-10-06 00:56] VITALS: BP 148/74
[2017-10-06 03:41] VITALS: BP 103/65
[2017-10-06 08:06] VITALS: BP 122/81
[2017-10-06 08:59] LABS: ANION GAP 7.4 mmol/L (8-16); BASOPHILS 0.5 % (0-2); CALCIUM 8.9 mg/dL (8.5-10.1); CARBON DIOXIDE 33.6 mmol/L (21.0-32.0); CREATININE - SERUM 1.1 mg/dL (0.6-1.3); EOSINOPHILS 6.8 % (0-7); HEMATOCRIT 40.4 % (42.0-54.0); HEMOGLOBIN 13.5 g/dL (13.5-17.5); IMMATURE GRANULOCYTES 1.2 % (0-5); LYMPHOCYTES 15.4 % (15-50); MCH 30.1 pg (26.0-34.0); MCHC 33.4 g/dL (31.0-37.0); MEAN PLATELET VOLUME 9.5 fL (7.4-10.4); MONOCYTES 8.1 % (2-11); PLATELET COUNT 697 10x3/uL (130-400); RBC 4.49 10x6/uL (4.20-6.10); RDW 13.8 % (11.5-14.5); WBC 14.8 10x3/uL (4.8-10.8)
[2017-10-06 12:36] VITALS: BP 106/73
[2017-10-06 15:23] VITALS: BP 102/71
[2017-10-06 20:00] VITALS: BP 98/61
[2017-10-07 04:00] VITALS: BP 97/59
[2017-10-07 06:23] LABS: BASOPHILS 0.4 % (0-2); EOSINOPHILS 8.6 % (0-7); HEMATOCRIT 35.9 % (42.0-54.0); IMMATURE GRANULOCYTES 1.5 % (0-5); LYMPHOCYTES 15.7 % (15-50); MCH 29.8 pg (26.0-34.0); MCHC 33.4 g/dL (31.0-37.0); MCV 89.1 fL (80.0-100.0); MEAN PLATELET VOLUME 9.2 fL (7.4-10.4); MONOCYTES 7.2 % (2-11); NEUTROPHILS 66.6 % (40-80); RBC 4.03 10x6/uL (4.20-6.10); RDW 13.9 % (11.5-14.5); WBC 12.3 10x3/uL (4.8-10.8)
[2017-10-07 06:25] LABS: PLATELET COUNT 507 10x3/uL (130-400)
[2017-10-07 06:52] LABS: ANION GAP 6.7 mmol/L (8-16); CALCIUM 8.3 mg/dL (8.5-10.1); CARBON DIOXIDE 32.9 mmol/L (21.0-32.0); CREATININE - SERUM 1.2 mg/dL (0.6-1.3); MAGNESIUM - SERUM 2.1 mg/dL (1.8-2.4); POTASSIUM - SERUM 3.6 mmol/L (3.5-5.1)
[2017-10-07 07:58] VITALS: BP 94/57
[2017-10-07 11:19] VITALS: BP 119/74
[2017-10-07 15:43] VITALS: BP 103/67
[2017-10-07 21:19] VITALS: BP 97/61
[2017-10-07 23:47] VITALS: BP 98/64
[2017-10-08 04:05] VITALS: BP 101/69
[2017-10-08 07:52] VITALS: BP 110/71
[2017-10-08 12:24] VITALS: BP 133/74
[2017-10-08 15:32] VITALS: BP 107/73
[2017-10-08 20:51] VITALS: BP 105/71
[2017-10-09 04:26] VITALS: BP 170/82
[2017-10-09 05:23] LABS: BASOPHILS 0.3 % (0-2); EOSINOPHILS 8.9 % (0-7); HEMATOCRIT 34.1 % (42.0-54.0); HEMOGLOBIN 11.5 g/dL (13.5-17.5); LYMPHOCYTES 9.3 % (15-50); MCHC 33.7 g/dL (31.0-37.0); MEAN PLATELET VOLUME 9.5 fL (7.4-10.4); MONOCYTES 10.4 % (2-11); NEUTROPHILS 70.1 % (40-80); PLATELET COUNT 507 10x3/uL (130-400); RBC 3.83 10x6/uL (4.20-6.10); WBC 10.3 10x3/uL (4.8-10.8)
[2017-10-09 05:38] LABS: ANION GAP 7.1 mmol/L (8-16); CALCIUM 8.5 mg/dL (8.5-10.1); CARBON DIOXIDE 31.4 mmol/L (21.0-32.0); CREATININE - SERUM 1.5 mg/dL (0.6-1.3); MAGNESIUM - SERUM 2.4 mg/dL (1.8-2.4); POTASSIUM - SERUM 3.5 mmol/L (3.5-5.1)
[2017-10-09] MEDS ORDERED: MILK OF MAGNESI30 ML PO (08:32)
[2017-10-09] MEDS ORDERED: ZOFRAN ODT4 MG/UDTAB PO (08:32)
[2017-10-09 08:42] VITALS: BP 103/67
== END 2017-10-09 12:19 | disposition home health service (06) | DRG 389 ==
LOC: D.ER 18:12 → D.MS 23:39
PROVIDERS: Family Medicine; Surgery
PROC: 0D9670Z Drainage of Stomach with Drainage Device, Via Natural or Artificial Opening (ICD-10-PCS; principal; 2017-09-27)
DX: K91.31 Postprocedural partial intestinal obstruction (principal); N17.9 Acute kidney failure, unspecified; J44.9 Chronic obstructive pulmonary disease, unspecified; I25.10 Atherosclerotic heart disease of native coronary artery without angina pectoris; Z98.890 Other specified postprocedural states; E86.0 Dehydration

== ENCOUNTER → 2018-02-03 15:40 | Outpatient (CLI) | payer MEDICARE ==
[2017-10-03 14:02] VITALS: BMI 22.1
[~2018-02-03 15:40] MED LIST changes: +BACTRIM DS1 TAB PO; +CYCLOBENZAPRINE10 MG PO; +LEVOFLOXACIN500 MG PO; +MILK OF MAGNESI30 ML PO; +ZOFRAN ODT4 MG/UDTAB PO
== END | disposition home or self-care (01) ==
LOC: D.CT 15:40
DX: K43.2 Incisional hernia without obstruction or gangrene (principal)

== ENCOUNTER 2018-02-23 05:58 | Inpatient (IN) | payer MEDICARE ==
[2018-02-20 08:54] LABS: HEMOGLOBIN 14.5 g/dL (13.5-17.5); MCH 31.5 pg (26.0-34.0); MCHC 34.5 g/dL (31.0-37.0); MCV 91.1 fL (80.0-100.0); MEAN PLATELET VOLUME 9.3 fL (7.4-10.4); RBC 4.61 10x6/uL (4.20-6.10); RDW 14.6 % (11.5-14.5); WBC 6.7 10x3/uL (4.8-10.8)
[2018-02-23] VITALS (7 sets, daily range): BP systolic 126–168; BP diastolic 73–95; BMI 24.3
[~2018-02-23] VITALS: Ht 172.7 cm; Wt 72.7 kg
--- NOTE | ~2018-02-23 | MORECARE ---
CASE MANAGEMENT DISCHARGE SUMMARY PATIENT: TONG CORREA UNIT: [id number] ADM DATE: 02/23/18 AGE: 77 : 41 SEX: M ROOM/BED: D.2101 AUTHOR: ALLIE CHUN PHYSICIAN: REFERRING PHYSICIAN: NARESH MC MD DATE OF SERVICE: 02/26/18 Discharge Plan Patient Name: TONG CORREA Facility: [facility]:[place] : 1940 Planned Disposition: Home with Home Health Anticipated Discharge Date: 02/26/18 Discharge Date: Expected LOS: 3 Initial Reviewer: [email or web address] Initial Review Date: 02/26/2018 Generated: 02/26/18 12:09 pm External Providers External Provider: [employer] Next Contact Date: 02/26/2018 Service Request Date: Service Type: Resolution: Reviewer: Comments: Coverage Notice Reviewer: [email or web address] Gricelda Malave Notice Issued Date-Time: 02/26/2018 9:50 Notice Type: IM Discharge Notice Notice Delivered To: Patient Relationship to Patient: Director Operations Broadcast Name: Delivery Method: HAND - Hand Delivered Shana Days: Prior Verbal Notification: Recipient Understood Notice: Yes Recipient Signature: Yes Med Rec Note Co-signed by Attending: Coverage Notice Comment: Patient Name: TONG CORREA Page [phone] at 1110 All edits/amendments must be made on the electronic document DICTATION DATE: 02/26/181108 SCARIFIER OPERATOR: DM 02/26/18 1109 RPT#: [id number] DC DATE: STATUS: ADM IN [facility] [address] [place] [address] END OF REPORT
--- NOTE | ~2018-02-23 | MORECARE ---
CASE MANAGEMENT DISCHARGE SUMMARY PATIENT: TONG CORREA UNIT: [id number] ADM DATE: 02/23/18 AGE: 77 : 41 SEX: M ROOM/BED: D.2101 AUTHOR: LAY,DOC PHYSICIAN: REFERRING PHYSICIAN: NARESH MC MD DATE OF SERVICE: 02/26/18 Discharge Plan Patient Name: TONG CORREA Facility: [facility]:[place] : 1940 Planned Disposition: Home with Home Health Anticipated Discharge Date: 02/26/18 Discharge Date: Expected LOS: 3 Initial Reviewer: [email or web address] Initial Review Date: 02/26/2018 Generated: 02/26/18 12:16 pm Comments DCP- Discharge Planning Updated by [email or web address]: Fidencio Malave on 02/26/18 10:[address] Patient Name: TONG CORREA Admission Status: Elective Accout number: [id number] Admission Date: 02-23-2018 : 1940 Admission Diagnosis: Attending: NARESH MC Current LOS: 3 Anticipated DC Date: 02-26-2018 Planned Disposition: Home with Home Health Primary Insurance: [facility] PLANNED EXTERNAL PROVIDER: [facility] Discharge Planning Comments: CM RECEIVED HOME HEALTH ORDER, MET WITH PT IN ROOM TO DISCUSS DISCHARGE PLANNING AND NEEDS. PT REPORTS LIVING AT HOME INDEPENDENTLY WITH SPOUSE. PT HAS CANE THAT HE DOES NOT USE WITH NO MEDICAL EQUIPMENT PROVIDER PREFERENCE. PT HAS NO OUTSIDE SERVICES ASSISTING IN THE HOME. CM DISCUSSED AVAILABILITY OF HOME HEALTH, REHAB SERVICES AND MEDICAL EQUIPMENT. PT DENIES DISCHARGE NEEDS INITIALLY AND PLANS TO CARE FOR DRAIN HIMSELF. CM RECEIVED NOTICE THAT PT CHANGED MIND AND WANTS HOME HEALTH. CM SPOKE TO BEDSIDE NURSE AND THEN PATIENT. PT REQUESTED HOME HEALTH WITH [facility], CHOICE SIGNED. PT REPORTS HIS WILL PICK HIM UP FOR DISCHARGE HOME TODAY. IMPORTANT MESSAGE FROM MEDICARE PROVIDED AND EXPLAINED. CM CALLED [facility], , SPOKE TO ALONDRA WHO TOOK REFERRAL INFORMATION AND WILL CHECK AVAILABILITY FOR HOME HEALTH ADMIT TOMORROW. CM FAXED REFERRAL TO [facility] AT [phone]. STEM CRUSHER NURSE NOTIFIED. CM WAITING CALL FROM [facility] TO DETERMINE IF THEY HAVE NURSING AVAILABILITY TO MEET PT'S NEEDS. Cardiac Monitor Technician: Fidencio Malave DCPIA - Discharge Planning Initial Assessment Updated by SABAS: Fidencio Malave on 02/26/18 11:10 am * Is the patient Alert and Oriented? Yes * How many steps to enter\exit or inside your home? 3 W/RAILS * PCP DR. WAKEFIELD * Pharmacy [facility] [address] * Preadmission Environment Home with Family * ADLs Independent * Equipment Cane * Other Equipment NO MEDICAL EQUIPMENT PROVIDER PREFERENCE * List name and contact numbers for known caregivers / representatives who currently or will assist patient after discharge: MARY JANE CORREA, SPOUSE, * Verbal permission to speak to the caregivers and representatives has been obtained from the patient. N/A * Community resources currently utilized None * Please name any agencies selected above. NONE * Additional services required to return to the preadmission environment? No * Can the patient safely return to the preadmission environment? Yes * Has this patient been hospitalized within the prior 30 days at any hospital? No Coverage Notice Reviewer: SABAS Malave Notice Issued Date-Time: 02/26/2018 9:50 Notice Type: IM Discharge Notice Notice Delivered To: Patient Relationship to Patient: Lens Marker Name: Delivery Method: HAND - Hand Delivered Shana Days: Prior Verbal Notification: Recipient Understood Notice: Yes Recipient Signature: Yes Med Rec Note Co-signed by Attending: Coverage Notice Comment: Reviewer: SABAS Malave Notice Issued Date-Time: 02/26/2018 10:30 Notice Type: Patient Choice Letter Notice Delivered To: Patient Relationship to Patient: Lens Marker Name: Delivery Method: HAND - Hand Delivered Shana Days: Prior Verbal Notification: Recipient Understood Notice: Yes Recipient Signature: Yes Med Rec Note Co-signed by Attending: Coverage Notice Comment: [facility] Last DP export: 02/26/18 10:09 Patient Name: TONG CORREA Page [phone] at 1116 All edits/amendments must be made on the electronic document DICTATION DATE: 02/26/18 1116 SLAUGHTERER RELIGIOUS RITUAL: [email or web address] 02/26/18 1116 RPT#: [id number] DC DATE: STATUS: ADM IN [facility] [address] [id number] END OF REPORT
--- NOTE | ~2018-02-23 | OP ---
PATIENT NAME: TONG CORREA MEDICAL RECORD: [id number] :42 LOCATION:[facility] D.2306 ADMISSION DATE:02/23/18 SURGEON: NARESH MC MD DATE OF OPERATION: 02/23/2018 SURGEON: Naresh Mc MD PREOPERATIVE DIAGNOSES: 1. History of laparoscopic incarcerated incisional hernia repair with mesh. 2. Acute blood loss anemia. POSTOPERATIVE DIAGNOSES: 1. History of laparoscopic incarcerated incisional hernia repair with mesh. 2. Acute blood loss anemia. PROCEDURES PERFORMED: Diagnostic laparoscopy, laparoscopic abdominal washout, laparoscopic control of bleeding, left subclavian central venous catheter placement. ANESTHESIA: General. COMPLICATIONS: None. SPECIMENS: None. Case was clean. ESTIMATED BLOOD LOSS: 1500 cc. OPERATIVE COURSE: After consent was obtained. The patient was taken to the operating room. The abdomen was prepped and draped in typical sterile fashion. Time was taken to confirm the correct patient and procedure. Previous laparoscopy sites incisions were opened with an 11-blade scalpel. The 5-mm bladeless optical trocars placed into the left upper quadrant at Marcos's point. The abdomen was insufflated, no evidence of boundary. The abdominal cavity was filled with a combination of coagulated and liquid blood. At this time, all 4 additional trocars were placed at the previous trocar sites, two 5-mm trocars in the right lateral quadrants and 11-mm and 5-mm trocar in the left lateral quadrants. The abdomen was copiously suctioned, approximately 1500 cc of blood were suctioned from the abdominal cavity, there was a bleeding vessel identified in the omentum that was treated with electrocautery. Next, the abdomen was copiously irrigated with 4 liters of warm normal saline. Small bowel was run, after copious irrigation, there was no active bleeding identified. Surgicel was placed in the abdominal cavity. Two JOJO drains were placed into the abdominal cavity and delivered to the 5-mm trocars. At this time, again, the abdomen was inspected in all 4 quadrants and again, there were no active signs of bleeding, no evidence of bowel injury. During the operation, the patient received 4 units of packed red blood cells and an NG tube was placed, at this time, all remaining trocars removed. The abdomen was desufflated. The JOJO drains were secured with 2-0 nylon suture and placed to bulb suction. Skin incision closed with 4-0 Monocryl, Mastisol, and Steri-Strips. At the end of the case, all needle and instrument counts were correct. The drapes were removed. OPERATIVE REPORT [id number] SONIANOAHTONG POLOI The left chest was then prepped and draped in typical sterile fashion. Left subclavian vein was cannulated in the first pass. A guidewire was placed. Skin incision was made with 11-blade scalpel. The dilator was passed with the wire in standard Seldinger fashion. A CVL was then passed over the wire in a standard Seldinger fashion. A Biopatch was placed and secured to the skin using 2-0 nylon suture and sterile dressings. All 3 ports were aspirated and flushed. The patient tolerated procedure well. He was extubated and transferred to the PACU in stable condition. TRANSINT:[id number] Voice Confirmation ID: [id number] DOCUMENT ID: [id number] NARESH MC MD at 2132 CC: [id number] DICTATION DATE: 02/23/18 1728 HOTEL STAFF MEMBER: 02/23/18 210 ADM IN [facility] [address] [place] [address]
--- NOTE | ~2018-02-23 | MORECARE ---
CASE MANAGEMENT DISCHARGE SUMMARY PATIENT: TONG CORREA UNIT: [id number] ADM DATE: 02/23/18 AGE: 77 : 41 SEX: M ROOM/BED: D.2101 AUTHOR: LAY,DOC PHYSICIAN: REFERRING PHYSICIAN: NARESH MC MD DATE OF SERVICE: 02/27/18 Discharge Plan Patient Name: TONG CORREA Facility: [facility]:[place] : 1940 Planned Disposition: Home with Home Health Anticipated Discharge Date: 02/26/18 Discharge Date: 02/26/2018 Expected LOS: 3 Initial Reviewer: [email or web address] Initial Review Date: 02/26/2018 Generated: 02/27/18 9:14 am Comments DCP- Discharge Planning Updated by [email or web address]: Fidencio Sky on 02/27/18 7:[address] Patient Name: TONG CORREA Admission Status: Elective Accout number: [id number] Admission Date: 02-23-2018 : 1940 Admission Diagnosis: Attending: NARESH MC Current LOS: 3 Anticipated DC Date: 02-26-2018 Planned Disposition: Home with Home Health Primary Insurance: [facility] PLANNED EXTERNAL PROVIDER: [facility] Discharge Planning Comments: CM RECEIVED HOME HEALTH ORDER, MET WITH PT IN ROOM TO DISCUSS DISCHARGE PLANNING AND NEEDS. PT REPORTS LIVING AT HOME INDEPENDENTLY WITH SPOUSE. PT HAS CANE THAT HE DOES NOT USE WITH NO MEDICAL EQUIPMENT PROVIDER PREFERENCE. PT HAS NO OUTSIDE SERVICES ASSISTING IN THE HOME. CM DISCUSSED AVAILABILITY OF HOME HEALTH, REHAB SERVICES AND MEDICAL EQUIPMENT. PT DENIES DISCHARGE NEEDS INITIALLY AND PLANS TO CARE FOR DRAIN HIMSELF. CM RECEIVED NOTICE THAT PT CHANGED MIND AND WANTS HOME HEALTH. CM SPOKE TO BEDSIDE NURSE AND THEN PATIENT. PT REQUESTED HOME HEALTH WITH [facility], CHOICE SIGNED. PT REPORTS HIS WILL PICK HIM UP FOR DISCHARGE HOME TODAY. IMPORTANT MESSAGE FROM MEDICARE PROVIDED AND EXPLAINED. CM CALLED [facility], , SPOKE TO ALONDRA WHO TOOK REFERRAL INFORMATION AND WILL CHECK AVAILABILITY FOR HOME HEALTH ADMIT TOMORROW. CM FAXED REFERRAL TO [facility] AT [phone]. FIRE OFFICER NURSE NOTIFIED. CM WAITING CALL FROM [facility] TO DETERMINE IF THEY HAVE NURSING AVAILABILITY TO MEET PT'S NEEDS. Plate Sensitizer: Fidencio Sky Appended by Fidencio Sky on 02/27/2018 8:13 CAPTAIN'S ASSISTANT: LATE ENTRY FROM 02-26-18, 1420 HOURS: CM RECEIVED CALL FROM ALONDRA OF [facility], THEY WILL ADMIT PT AT HOME MORNING OF 02-27-18 FOR HOME HEALTH SERVICES. FIDENCIO SKY, CASE MANAGEMENT DCPIA - Discharge Planning Initial Assessment Updated by [id number]: Fidencio Sky on 02/26/18 11:10 am * Is the patient Alert and Oriented? Yes * How many steps to enter\exit or inside your home? 3 W/RAILS * PCP DR. WAKEFIELD * Pharmacy [facility] ON [place] * Preadmission Environment Home with Family * ADLs Independent * Equipment Cane * Other Equipment NO MEDICAL EQUIPMENT PROVIDER PREFERENCE * List name and contact numbers for known caregivers / representatives who currently or will assist patient after discharge: MARY JANE CORREA, SPOUSE, * Verbal permission to speak to the caregivers and representatives has been obtained from the patient. N/A * Community resources currently utilized None * Please name any agencies selected above. NONE * Additional services required to return to the preadmission environment? No * Can the patient safely return to the preadmission environment? Yes * Has this patient been hospitalized within the prior 30 days at any hospital? No Coverage Notice Reviewer: [email or web address] Gricelda Sky Notice Issued Date-Time: 02/26/2018 9:50 Notice Type: IM Discharge Notice Notice Delivered To: Patient Relationship to Patient: Plan Coordinator Name: Delivery Method: HAND - Hand Delivered Shana Days: Prior Verbal Notification: Recipient Understood Notice: Yes Recipient Signature: Yes Med Rec Note Co-signed by Attending: Coverage Notice Comment: Reviewer: [email or web address] Gricelda Sky Notice Issued Date-Time: 02/26/2018 10:30 Notice Type: Patient Choice Letter Notice Delivered To: Patient Relationship to Patient: Plan Coordinator Name: Delivery Method: HAND - Hand Delivered Shana Days: Prior Verbal Notification: Recipient Understood Notice: Yes Recipient Signature: Yes Med Rec Note Co-signed by Attending: Coverage Notice Comment: [facility] Last DP export: 02/26/18 10:16 Patient Name: TONG CORREA Page [id number] at 0814 All edits/amendments must be made on the electronic document DICTATION DATE: 02/27/18813 [employer]OWER PLANT OPERATOR: [email or web address] 02/27/18813 RPT#: [id number] DC DATE:02/26/18 STATUS: DIS IN [facility] [address] [place] [address] END OF REPORT
[~2018-02-23 05:58] MED LIST changes: -BACTRIM DS1 TAB PO; -CYCLOBENZAPRINE10 MG PO; -LEVOFLOXACIN500 MG PO
[2018-02-23] MEDS ORDERED: HYDROCODON-ACE1 EAC7 PO (09:42)
[2018-02-23 13:56] LABS: BASOPHILS 0.3 % (0-2); EOSINOPHILS 0.7 % (0-7); HEMOGLOBIN 10.7 g/dL (13.5-17.5); IMMATURE GRANULOCYTES 0.4 % (0-5); MCHC 33.4 g/dL (31.0-37.0); MCV 92.8 fL (80.0-100.0); MEAN PLATELET VOLUME 9.9 fL (7.4-10.4); MONOCYTES 7.6 % (2-11); PLATELET COUNT 515 10x3/uL (130-400); RBC 3.45 10x6/uL (4.20-6.10); RDW 14.8 % (11.5-14.5); WBC 15.2 10x3/uL (4.8-10.8)
[2018-02-23 19:52] LABS: CALCIUM 7.6 mg/dL (8.5-10.1); CREATININE - SERUM 1.3 mg/dL (0.6-1.3)
[2018-02-23 19:56] LABS: APTT 29.4 SECONDS (22.8-39.4); INR 1.21 (0.85-1.17); PROTIME 14.8 SECONDS (11.6-15.0)
[2018-02-24] VITALS (21 sets, daily range): BP systolic 115–165; BP diastolic 69–93; Ht 172.7 cm; Wt 72.7 kg
[2018-02-24 01:50] LABS: HEMATOCRIT 33.8 % (42.0-54.0); HEMOGLOBIN 11.6 g/dL (13.5-17.5)
[2018-02-24 05:45] LABS: ANION GAP 12.4 mmol/L (8-16); CALCIUM 7.4 mg/dL (8.5-10.1); CARBON DIOXIDE 24.7 mmol/L (21.0-32.0); CREATININE - SERUM 1.1 mg/dL (0.6-1.3); MAGNESIUM - SERUM 1.3 mg/dL (1.8-2.4); POTASSIUM - SERUM 4.1 mmol/L (3.5-5.1)
[2018-02-24 06:27] LABS: BASOPHILS 0.1 % (0-2); EOSINOPHILS 0.1 % (0-7); HEMATOCRIT 33.3 % (42.0-54.0); HEMOGLOBIN 11.6 g/dL (13.5-17.5); IMMATURE GRANULOCYTES 0.5 % (0-5); LYMPHOCYTES 4.2 % (15-50); MCHC 34.8 g/dL (31.0-37.0); MEAN PLATELET VOLUME 9.3 fL (7.4-10.4); MONOCYTES 10.9 % (2-11); NEUTROPHILS 84.2 % (40-80); RBC 3.74 10x6/uL (4.20-6.10); RDW 15.2 % (11.5-14.5)
[2018-02-24 06:58] LABS: PLATELET COUNT 365 10x3/uL (130-400); WBC 10.4 10x3/uL (4.8-10.8)
[2018-02-25 01:14] VITALS: BP 142/79
[2018-02-25 05:25] VITALS: BP 143/69
[2018-02-25 06:15] LABS: BASOPHILS 0.3 % (0-2); EOSINOPHILS 4.1 % (0-7); HEMATOCRIT 34.1 % (42.0-54.0); HEMOGLOBIN 11.6 g/dL (13.5-17.5); IMMATURE GRANULOCYTES 0.3 % (0-5); LYMPHOCYTES 9.3 % (15-50); MCH 30.7 pg (26.0-34.0); MCV 90.2 fL (80.0-100.0); MEAN PLATELET VOLUME 9.4 fL (7.4-10.4); MONOCYTES 10.6 % (2-11); NEUTROPHILS 75.4 % (40-80); RBC 3.78 10x6/uL (4.20-6.10); RDW 15.4 % (11.5-14.5); WBC 11.9 10x3/uL (4.8-10.8)
[2018-02-25 06:18] LABS: PLATELET COUNT 480 10x3/uL (130-400)
[2018-02-25 06:36] LABS: ANION GAP 8.8 mmol/L (8-16); CALCIUM 8.5 mg/dL (8.5-10.1); CARBON DIOXIDE 29.3 mmol/L (21.0-32.0); CREATININE - SERUM 1.1 mg/dL (0.6-1.3); POTASSIUM - SERUM 4.1 mmol/L (3.5-5.1); VANCOMYCIN - TROUGH 9.6 ug/mL (10.0-20.0)
[2018-02-25 08:40] LABS: APPEARANCE CLEAR (CLEAR); BILIRUBIN NEGATIVE (NEGATIVE); COLOR YELLOW (YELLOW); GLUCOSE NEGATIVE (NEGATIVE); KETONE NEGATIVE (NEGATIVE); NITRITE NEGATIVE (NEGATIVE); PROTEIN NEGATIVE (NEGATIVE); UROBILINOGEN NORMAL (NORMAL)
[2018-02-25 08:41] LABS: EPITHELIAL CELLS OCC /hpf (0-5); RED CELLS - URINE 0-5 /hpf (0-5); WHITE CELLS - URINE RARE /hpf (0-5)
[2018-02-25 08:42] LABS: BACTERIA FEW /hpf (NONE SEEN)
[2018-02-25 09:27] VITALS: BP 111/85
[2018-02-25 11:33] VITALS: BP 142/73
[2018-02-25 21:30] VITALS: BP 148/85
[2018-02-26 00:57] VITALS: BP 123/63
[2018-02-26 05:32] VITALS: BP 142/76
[2018-02-26 08:16] LABS: BASOPHILS 0.3 % (0-2); EOSINOPHILS 8.6 % (0-7); HEMATOCRIT 28.4 % (42.0-54.0); HEMOGLOBIN 9.4 g/dL (13.5-17.5); IMMATURE GRANULOCYTES 0.2 % (0-5); LYMPHOCYTES 10.7 % (15-50); MCH 30.3 pg (26.0-34.0); MCHC 33.1 g/dL (31.0-37.0); MCV 91.6 fL (80.0-100.0); MEAN PLATELET VOLUME 9.5 fL (7.4-10.4); NEUTROPHILS 70.2 % (40-80); PLATELET COUNT 420 10x3/uL (130-400); RDW 15.2 % (11.5-14.5)
[2018-02-26 08:22] VITALS: BP 151/83
[2018-02-26 08:25] LABS: ANION GAP 9.6 mmol/L (8-16); CALCIUM 8.2 mg/dL (8.5-10.1); CREATININE - SERUM 1.1 mg/dL (0.6-1.3); POTASSIUM - SERUM 3.6 mmol/L (3.5-5.1)
[2018-02-26] MEDS ORDERED: BACTRIM DS1 TAB PO (08:46)
[2018-02-26] MEDS ORDERED: ULTRAM50 MG PO (08:46)
[2018-02-26] MEDS ORDERED: LEVOFLOXACIN500 MG PO (08:46)
[2018-02-26] MEDS ORDERED: CYCLOBENZAPRINE10 MG PO (08:46)
== END 2018-02-26 12:52 | disposition home health service (06) | DRG 336 ==
LOC: D.OPS 05:58 → D.PAN 08:00 → D.OPS 09:30 → D.SDCHOLD 17:18 → D.ICU 17:18 → D.M2 02-24 20:40
PROVIDERS: Anesthesiology; Surgery
PROC: 0WUF4JZ Supplement Abdominal Wall with Synthetic Substitute, Percutaneous Endoscopic Approach (ICD-10-PCS; 2018-02-23)
PROC: 0W3F4ZZ Control Bleeding in Abdominal Wall, Percutaneous Endoscopic Approach (ICD-10-PCS; 2018-02-23)
PROC: 05H633Z Insertion of Infusion Device into Left Subclavian Vein, Percutaneous Approach (ICD-10-PCS; 2018-02-23)
PROC: 3E1M38Z Irrigation of Peritoneal Cavity using Irrigating Substance, Percutaneous Approach (ICD-10-PCS; 2018-02-23)
PROC: 0DNU4ZZ Release Omentum, Percutaneous Endoscopic Approach (ICD-10-PCS; principal; 2018-02-23 08:00)
DX: K43.0 Incisional hernia with obstruction, without gangrene (principal); D62 Acute posthemorrhagic anemia; R33.9 Retention of urine, unspecified

== ENCOUNTER → 2018-04-23 08:27 | Outpatient (CLI) | payer MEDICARE ==
[2018-02-24 09:41] VITALS: BMI 24.3
[~2018-04-23 08:27] MED LIST changes: +BACTRIM DS1 TAB PO; +CYCLOBENZAPRINE10 MG PO; +LEVOFLOXACIN500 MG PO
== END | disposition home or self-care (01) ==
LOC: D.CT 04-22 09:00
DX: R10.9 Unspecified abdominal pain (principal); K43.2 Incisional hernia without obstruction or gangrene

== ENCOUNTER → 2018-07-02 13:26 | Outpatient (CLI) | payer MEDICARE ==
[2018-02-24 09:41] VITALS: BMI 24.3
== END | disposition home or self-care (01) ==
LOC: D.US 13:26
PROVIDERS: ATTEND Surgery
DX: R11.0 Nausea (principal)

== ENCOUNTER 2018-10-09 12:31 | Observation (INO) | payer MEDICARE ==
[~2018-10-09] VITALS: Ht 172.7 cm; Wt 72.7 kg
--- NOTE | 2018-10-09 12:59 | NUR ---
TRANSFERED FROM ADMISSIONS BY W/C. OREINTED TO ROOM. CALL LIGHT IN REACH. WILL CONT. PLAN OF CARE.
--- NOTE | 2018-10-09 13:27 | NUR ---
22 G IV CATHETER INSERTED TO L FOREARM. BLOOD RETURN NOTED FLUSHED WITH 5 ML NORMAL SALINE. SECURED WITH OPSITE AND MEDIPORE TAPE.
[2018-10-09 13:37] VITALS: BP 145/92; Ht 172.7 cm; Wt 72.7 kg
--- NOTE | 2018-10-09 13:47 | NUR ---
IV STARTED TO LEFT FA BY STUDENT NURSE. LINE IS PATENT. EKG COMPLETED.
[2018-10-09 13:57] LABS: BASOPHILS 0.3 % (0-2); EOSINOPHILS 3.3 % (0-7); HEMATOCRIT 41.9 % (42.0-54.0); HEMOGLOBIN 14.6 g/dL (13.5-17.5); IMMATURE GRANULOCYTES 0.4 % (0-5); LYMPHOCYTES 10.2 % (15-50); MCH 31.4 pg (26.0-34.0); MCHC 34.8 g/dL (31.0-37.0); MCV 90.1 fL (80.0-100.0); NEUTROPHILS 77.8 % (40-80); PLATELET COUNT 473 10x3/uL (130-400); RBC 4.65 10x6/uL (4.20-6.10); RDW 15.9 % (11.5-14.5)
[2018-10-09 14:19] LABS: AMYLASE - SERUM 88 U/L (25-115); CALC OSMOLALITY 280 mosm/kg (275-300); CALCIUM 8.8 mg/dL (8.5-10.1); CARBON DIOXIDE 30.4 mmol/L (21.0-32.0); CHLORIDE - SERUM 104 mmol/L (98-107); CREATINE KINASE 60 UL (21-232); CREATININE - SERUM 1.1 mg/dL (0.6-1.3); DIGOXIN < 0.06 ng/mL (0.90-2.00); GLUCOSE 94 mg/dL (74-106); LIPASE 131 U/L (73-393); POTASSIUM - SERUM 4.1 mmol/L (3.5-5.1); SODIUM 140 mmol/L (136-145); UREA NITROGEN 18 mg/dL (7-18); eGFR NON AFRICAN AMERICAN 69 mL/min (90-120)
--- NOTE | 2018-10-09 15:51 | HP ---
PATIENT: TONG CORREA MEDICAL RECORD: [id number] ACCOUNT: [id number] LOCATION:[address] : [birth year] ADMISSION DATE: 10/09/18 PCP: EMMA WAKEFIELD MD HISTORY AND PHYSICAL EXAMINATION REASON FOR ADMISSION: Chest pain and shortness of breath. HISTORY OF PRESENT ILLNESS: The patient is an elderly 78-year-old male who had PTCA times 2, he states in [address] Pena. He says he has not seen a counseling aide since. He states that yesterday, he noticed some onset of some shortness of breath with exertion. He would rest it would go away. He had more symptoms today associated with substernal chest discomfort. Denies cough or sputum production, just does not feel well and has been tired for about a month. Most recently, he diagnosed with myeloproliferative disorder by Dr. Wakefield and referred to Dr. Freitas. He has not had a bone marrow biopsy as yet, but he states that Dr. Freitas's office called and said he most likely had that disease. His last platelet count was 750,000. He denies any dyspepsia, fever, or productive cough. He is in the office today and his O2 sat was 98% on room air. His EKG was unremarkable, but due to symptomatology and recent diagnosis of thrombocytosis and prior PTCA, he is being directly admitted to observation for cardiac evaluation. PAST MEDICAL HISTORY: He had a long hospital course last year including a pneumoperitoneum from diverticulitis, developed abdominal abscess, pseudomembranous colitis, anemia from postoperative state and assisted Seth's procedure, biliary obstruction, abdominal wound breakdown, abdominal and pelvic abscesses postoperative with IR drainage. Wound VAC placement for wound. History of coronary artery disease with stents times 2 in 2014, history of rectal fistula with anal fistulotomy in 2016, history of herpes simplex, and BPH. PAST SURGICAL HISTORY: As above including tonsillectomy, appendectomy, laparoscopic hernia repair, Seth's pouch, anal fistulotomy. FAMILY HISTORY: Father at 84 and had hypertension. Mother at 50 of unknown cancer. SOCIAL HISTORY: He is currently , nonsmoker and nondrinker. ALLERGIES: AMOXICILLIN. MEDICATIONS: Silenor 3 mg p.o. at bedtime, MiraLax 17 grams p.o. with water daily, Therems-M 27 mg 1 tablet by mouth b.i.d., Ventolin HFA 1-2 puffs q.6 hours p.r.n. for shortness of breath. REVIEW OF SYSTEMS: GENERAL: Fatigue for the last month. No fever. HEENT: No recent new visual change, sinus congestion, sore throat, or hearing difficulty. RESPIRATORY: He has had mild shortness of breath for the last 24-48 hours without cough or sputum production. CARDIAC: Substernal chest discomfort without radiation, better at rest. No palpitations. ENDOCRINE: Denies polyuria, polydipsia, heat or cold intolerance. NEUROLOGIC: No history of stroke, TIA, or vascular headaches. HISTORY AND PHYSICAL [id number] TONG CORREA INTEGUMENT: No rash or itching. PSYCHIATRIC: Denies depressed mood. PHYSICAL EXAMINATION: VITAL SIGNS: His O2 sat is 98% on room air. His height is 68 inches, weighs 159 pounds, BMI is 24, blood pressure 120/60, heart rate of 88 and regular. GENERAL: The patient is alert, in no acute distress. His eyes are clear. Oropharynx unremarkable. NECK: Supple, no bruits or JVD. CHEST: Distant breath sounds without wheeze or rales. HEART: Regular rate and rhythm without murmur. ABDOMEN: Soft with postsurgical changes. Bowel sounds are active. EXTREMITIES: No CC&E. GENITOURINARY: Deferred. EXTREMITIES: Otherwise, unremarkable. SKIN: No icterus or petechiae. PSYCHIATRIC: Denies depressed mood. NEUROLOGIC: Oriented times 3. Cranial nerves intact. Gait is normal. DIAGNOSTIC DATA: EKG shows sinus rhythm. Chest x-ray shows no acute cardiopulmonary disease. ASSESSMENT: 1. Atypical dyspnea with chest pain, history of PTCA times 2, last followup. 2. Recent myeloproliferative disorder diagnosis with thrombocytosis making him at risk for hypercoagulable state. PLAN: The patient will be directly admitted to cardiac floor for observation for cardiac monitoring. Cardiac enzymes, cardiology consult. D-dimer is elevated. We will check pulmonary CTA. TRANSINT:[id number] Voice Confirmation ID: [id number] DOCUMENT ID: [id number] ELLY HOLLIDAY MD at 1551 CC: [id number] DICTATION DATE: 10/09/18 1232 DOG HANDLER: 10/09/18 1304 ADM IN [facility] [address] [facility], [facility]
[2018-10-09 16:10] VITALS: BP 138/87
[2018-10-09 20:00] VITALS: BP 131/74
--- NOTE | 2018-10-09 20:00 | NUR ---
INITIAL ROUNDS AND ASSESSMENT COMPLETED. PT RESTING IN BED WITH NO DISTRESS. CPOC.
[2018-10-10] VITALS: BP 130/74
[2018-10-10 04:00] VITALS: BP 124/72
--- NOTE | 2018-10-10 07:15 | NUR ---
RECEIVED PT IN BED AAOX4 RESP UNLABORED SKIN W/D COLOR WNL PT DENIES ANY NEEDS OR DISCOMFORT AT THIS TIME
[2018-10-10 09:32] VITALS: BP 110/74
[2018-10-10] MEDS ORDERED: NITROQUICK0.4 MG SL (10:55)
[2018-10-10] MEDS ORDERED: ASPIRIN325 MG PO (10:56)
[2018-10-10] MEDS ORDERED: ISOSORBIDE MONO30 M1 PO (10:57)
[2018-10-10] MEDS ORDERED: THERALITH XR T1 EACH PO (11:05)
--- NOTE | 2018-10-10 13:40 | NUR ---
REVIEWED DISCHARGE INSTRUCTIONS WITH PT STATES UNDERSTANDING COPY GIVEN DCD SALINE LOCK TO RT WRIST AND LFA WITH IV CATHETER INTACT SITES FREE OF REDNESS OR EDEMA PT DISCHARGED HOME LEFT UNIT WALKING IN STABLE CONDITION WITH ALL PERSONAL BELONGINGS
--- NOTE | 2018-10-12 08:53 | MORECARE ---
CASE MANAGEMENT DISCHARGE SUMMARY PATIENT: TONG CORREA UNIT: [id number] ADM DATE: 10/09/18 AGE: 78 : 42 SEX: M ROOM/BED: D.2118 AUTHOR: ALLIE CHUN PHYSICIAN: REFERRING PHYSICIAN: ELLY HOLLIDAY MD DATE OF SERVICE: 10/12/18 Discharge Plan Patient Name: TONG CORREA [facility] [facility] 1940 Planned Disposition: Home Anticipated Discharge Date: 10/10/18 Discharge Date: 10/10/2018 Expected LOS: 1 Initial Reviewer: [email or web address] Initial Review Date: 10/12/2018 Generated: 10/12/18 9:52 am Patient Name: TONG CORREA Page [id number] at 0853 All edits/amendments must be made on the electronic document DICTATION DATE: 10/12/18 0852 MEDIA SERVICES COORDINATOR: ЮЛИЯ 10/12/18 0852 RPT#: [id number] DC DATE:10/10/18 STATUS: DIS IN [facility] [address] [place] [address] END OF REPORT
== END 2018-10-10 13:40 | disposition home or self-care (01) ==
LOC: OBSVTIME 12:31 → D.M2 12:31
PROVIDERS: ADMIT Family Medicine; ATTEND Family Medicine
DX: I25.10 Atherosclerotic heart disease of native coronary artery without angina pectoris (principal); R06.00 Dyspnea, unspecified; C94.6 Myelodysplastic disease, not elsewhere classified

== ENCOUNTER → 2018-10-21 08:32 | Outpatient (CLI) | payer MEDICARE ==
[2018-10-09 13:37] VITALS: BMI 24.3
[~2018-10-21 08:32] MED LIST changes: +ASPIRIN325 MG PO; +ISOSORBIDE MONO30 M1 PO; +NITROQUICK0.4 MG SL; +THERALITH XR T1 EACH PO
== END | disposition home or self-care (01) ==
LOC: D.HCCARDIO 08:32
PROVIDERS: ATTEND Internal Medicine Cardiovascular Disease
DX: I25.10 Atherosclerotic heart disease of native coronary artery without angina pectoris (principal)